=== PATIENT | female | born 1970 | race Caucasian/White ===

== ENCOUNTER 2020-05-06 14:48 | Inpatient (IN) | payer MEDICAID ==
[2020-05-06] MEDS: cefTRIAXone 2 GM in Sodium Chloride 0.9% 100 ML IV SCH (17:19)
--- NOTE | 2020-05-06 22:02 | HP ---
REASON FOR EMERGENCY ROOM VISIT: Infection left leg. HISTORY: This 49-year-old woman with morbid obesity, comes in with a 4-day history of what sounds like a progressive rash involving her left leg approximately her ankle up and to the mid medial thigh area. She believes that she started to get a red rash involving her leg approximately 4 days ago. Because of her obesity, she is not able to see it very well, but today she did notice that there was considerably worse, but over the last couple of days she has noticed considerably more swelling involving her left leg and more erythema. She has had a minimal amount of discomfort associated with this, but denies any fever or chills. She has not had any trauma to her legs or any open sores that she can think of. She does have a history of psoriasis and she states she has had cellulitis in the past. She is a nondiabetic. PAST MEDICAL HISTORY: 1. Psoriasis. 2. Obesity. 3. Hypertension. MEDICATIONS: None. ALLERGIES: NONE. REVIEW OF SYSTEMS: Pertinent positives and negatives as listed in the HPI. PHYSICAL EXAMINATION: GENERAL: She is a pleasant, obese woman in no acute distress. VITAL SIGNS: She is afebrile. Heart rate is 102, blood pressure 161/123, respiratory rate is 24, O2 sats on room air is 96%. HEENT: No conjunctivitis or scleral icterus. Oropharynx is normal. NECK: Supple. No adenopathy. CHEST: Clear to auscultation with good air exchange bilaterally. No wheezes, rhonchi, or rales. CARDIAC: Regular rate without murmur. ABDOMEN: Extremely obese, soft, and nontender to deep palpation. No hepatosplenomegaly or palpable masses noted. EXTREMITIES: She has some mild edema about her right leg. This may represent mild lymphedema. Her left leg demonstrates the raised vesicular reddish rash with skin edema and sharply demarcated borders beginning at the level of the medial malleolus and extending all the way up the leg circumferentially to about the knee and then up the medial aspect of the thigh approximately half way up. The borders, the rash is warm with raised skin edges and sharply demarcated, all characteristic of erysipelas. There are some vesicles overlying this, particularly in the upper thigh area and a couple of small bullae. These have clear yellowish serum contained within them, but not purulent. There is no obvious area of trauma or skin laceration. She also has raised crusting areas consistent with psoriasis in about both elbows and in the upper arms bilaterally. NEUROLOGIC: Cranial nerves 2 through 12 are intact. Muscle, strength, bulk, and tone are normal bilaterally in the upper and lower extremities. She moves all extremities equally well. Sensation is normal to crude touch. LABORATORY DATA: CBC shows a marked leukocytosis with a white count of 21,600. Her hemoglobin is 13.4. Differential is pending at this time. A CMP reveals her electrolytes to be normal, but her creatinine is 1.32. Her BUN is 24. Her glucose is 120. Her bilirubin, AST and ALT are normal, but she has a mild elevation of alkaline phosphatase at 157. Her albumin is 2.9. COVID-19 screen is pending at this time. IMPRESSION: 1. Erysipelas, severe, without evidence of septicemia at this time. 2. Elevated blood pressure. She does have a history of hypertension for which she was on medication and elected to stop it on her own because she could not tolerate it for some reason. 3. Psoriasis. 4. Possible underlying lymphedema. 5. Morbid obesity. PLAN: I am not confident that she can care for herself adequately at home even though theoretically she could be managed with daily outpatient Rocephin IM injections. With this degree of obvious severe erysipelas and her inability to notice it because of her obesity mandates that she be placed in the hospital until we get this thing under control with parenteral antibiotics and simple localized local cares. We will start her on Rocephin 2 g IV every 24 hours. We will wash the area of erysipelas, particularly the areas where it is weeping with surgical soap such as Hibiclens t.i.d. I am going to avoid the temptation to place any wraps around her leg and so forth because I do not think it will do any real good for the underlying problem. In addition, we will monitor her blood pressure and decide whether or not antihypertensive therapy needs to be initiated while she is inpatient. She understands and agrees with this plan. All questions were answered. ANTHONY/ROSA
[2020-05-06] MEDS: Ibuprofen 200 MG Tab PO PRN (23:08)
[2020-05-07] MEDS: Ibuprofen 200 MG Tab PO PRN ×2 (05:40→18:04)
[2020-05-07] MEDS: Lactobacillus Acidophilus/Lactobacillus Sporogenes (Probiotic) Tab PO SCH (08:54)
[2020-05-07] MEDS: Nystatin Topical Powder 15 GM Bottle TOP PRN (10:00)
[2020-05-07] MEDS: Lisinopril 10 MG Tab PO SCH (12:09)
[2020-05-07] MEDS: Hydrochlorothiazide 12.5 MG Cap PO SCH (12:09)
[2020-05-07] MEDS: cefTRIAXone 2 GM in Sodium Chloride 0.9% 100 ML IV SCH (16:05)
[2020-05-07] MEDS ORDERED: Ibuprofen 600 MG Tab ONE (17:59)
[2020-05-08] MEDS: Ibuprofen 200 MG Tab PO PRN ×2 (04:46→13:05)
--- NOTE | 2020-05-08 07:08 | PN ---
DATE OF VISIT: 05/07/2020 HISTORY OF PRESENT ILLNESS: Gen had an uneventful night. She will receive her 2nd dose of Rocephin 2 g IV daily. She remains afebrile and offers no new complaints. The nursing staff reports that she is not very cooperative with blood pressure checking and wound cares to her leg, etc. OBJECTIVE: She has been afebrile with temperatures ranging between 36.9 and 37.4 degrees centigrade. Her blood pressure has been ranging between 144 and 173 systolic over 80-88 diastolic. On exam, her cellulitis does not appear to be changed versus yesterday and this is not surprising. Some of the bullae have popped and there has been some serous drainage from the areas where the bullae were located, but there does not seem to be any progression of the erysipelas. IMPRESSION: 1. Erysipelas. 2. Hypertension. PLAN: I think she would do well on an JULIANA inhibitor combined with a diuretic like hydrochlorothiazide given her generalized tendency toward edema. We will start her on lisinopril 10 mg with hydrochlorothiazide 12.5 mg p.o. daily. I explained this to Gen and she agrees with this plan. She also knows that I will be gone tomorrow and Dr. Kaminski will be assuming her care. ANTHONY/ROSA /[id number]
[2020-05-08] MEDS: Hydrochlorothiazide 12.5 MG Cap PO SCH (08:09)
[2020-05-08] MEDS: Lactobacillus Acidophilus/Lactobacillus Sporogenes (Probiotic) Tab PO SCH (08:10)
[2020-05-08] MEDS: Lisinopril 10 MG Tab PO SCH (08:10)
[2020-05-08] MEDS ORDERED: Piperacillin/Tazobactam 4.5 GM in Sodium Chloride 0.9% 100 ML IV SCH (08:45)
[2020-05-08] MEDS: Nystatin Topical Powder 15 GM Bottle TOP PRN (09:42)
[2020-05-08] MEDS: Piperacillin/Tazobactam 4.5 GM in Sodium Chloride 0.9% 100 ML IV SCH ×2 (14:31→20:43)
--- NOTE | 2020-05-08 18:57 | PCM.PN ---
- General Info Date of Service: 05/08/20 Subjective Update: Patient denies any fever or chills. She has a good appetite. Patient notes the left leg does feel swollen. She denies any leg pain. Functional Status: Reports: Pain Controlled, Tolerating Diet, Ambulating - Review of Systems General: Reports: No Symptoms HEENT: Reports: No Symptoms Pulmonary: Reports: No Symptoms Cardiovascular: Reports: No Symptoms Gastrointestinal: Reports: No Symptoms Genitourinary: Reports: No Symptoms Musculoskeletal: Reports: No Symptoms Skin: Reports: Other (erythema and blistering of the lower leg and circumferential lower leg) Psychiatric: Reports: No Symptoms - Patient Data Vitals - Most Recent: Last Vital Signs Temp 36.8 C 05/08/20 16:00 Pulse 86 05/08/20 16:00 Resp 20 05/08/20 16:00 BP 158/79 H 05/08/20 16:00 Pulse Ox 98 05/08/20 16:00 Weight - Most Recent: 181.437 kg Lab Results Last 24 Hours: Laboratory Results - last 24 hr 05/08/20 05/08/20 05/08/20 Range/Units 07:40 07:40 07:40 WBC 18.5 H (4.0-11.0) K/uL RBC 4.12 (3.80-5.80) M/uL Hgb 11.3 L (11.5-16.5) g/dL Hct 37.1 (37.0-47.0) % MCV 90 (76-96) fL MCH 27.4 (27.0-32.0) pg MCHC 30.5 L (31.0-35.0) g/dL RDW 15.4 (11.0-16.0) % Plt Count 348 (150-500) K/uL MPV 9.9 (6.0-10.0) fL Neut % (Auto) 89.2 H (45.0-70.0) % Lymph % (Auto) 5.6 L (20.0-40.0) % [place] % (Auto) 4.2 (3.0-10.0) % Eos % (Auto) 0.9 L (1.0-5.0) % Baso % (Auto) 0.1 (0.0-0.5) % Neut # (Auto) 16.50 H (2.00-7.50) K/uL Lymph # (Auto) 1.03 L (1.50-4.00) K/uL [place] # (Auto) 0.77 (0.20-0.80) K/uL Eos # (Auto) 0.16 (0.04-0.40) K/uL Baso # (Auto) 0.02 (0.02-0.10) K/uL Sodium Cancelled 144 Potassium Cancelled 3.7 Chloride Cancelled 106 Carbon Dioxide Cancelled 27.3 Anion Gap Cancelled 14.4 BUN Cancelled 20 Creatinine Cancelled 1.09 H Est Cr Clr Drug Dosing Cancelled 57.80 Estimated GFR (MDRD) Cancelled 53 L BUN/Creatinine Ratio Cancelled 18.3 Glucose Cancelled 106 H Calcium Cancelled 8.5 Total Bilirubin 0.4 D (0.0-1.0) mg/dL AST 16 (15-37) U/L ALT 21 (12-78) U/L Alkaline Phosphatase 131 H (46-116) U/L Total Protein 7.1 (6.4-8.2) g/dL Albumin 1.9 L (3.4-5.0) g/dL Globulin 5.2 H (2.2-4.2) g/dL Albumin/Globulin Ratio 0.4 L (0.8-2.0) Pramod Results Last 24 Hours: Microbiology 05/06/20 Unknown MRSA Surveillance Culture - Final Nares, Left NO MRSA ISOLATED Med Orders - Current: Current Medications Acetaminophen (Tylenol Extra Strength) 1,000 mg PO Q4H PRN PRN Reason: Pain Hydrochlorothiazide (Hydrochlorothiazide) 12.5 mg PO DAILY [facility] Last Admin: 05/08/20 08:09 Dose: 12.5 mg Documented by: Ceftriaxone Sodium 2 gm/ (Sodium Chloride) 100 mls @ 100 mls/hr IV Q24H [facility] Last Admin: 05/07/20 16:05 Dose: 100 mls/hr Documented by: Piperacillin Sod/Tazobactam (Sod 4.5 gm/ Sodium Chloride) 100 mls @ 200 mls/hr IV Q6H [facility] Last Admin: 05/08/20 14:31 Dose: 200 mls/hr Documented by: Ibuprofen (Motrin) 600 mg PO Q4H PRN PRN Reason: PAIN Lactobacillus Acidophilus (Acidolphilus Extra Strength) 1 tab PO DAILY [facility] Last Admin: 05/08/20 08:10 Dose: 1 tab Documented by: Lisinopril (Prinivil) 10 mg PO DAILY [facility] Last Admin: 05/08/20 08:10 Dose: 10 mg Documented by: Melatonin (Melatonin) 6 mg PO BEDTIME PRN PRN Reason: sleep Nystatin (Nystop) 0 gm TOP QID PRN PRN Reason: Rash Last Admin: 05/08/20 09:42 Dose: 1 applic Documented by: Discontinued Medications Vancomycin HCl 2 gm/ Sodium (Chloride) 250 mls @ 167 mls/hr IV Q12H [facility] Piperacillin Sod/Tazobactam (Sod 4.5 gm/ Sodium Chloride) 100 mls @ 200 mls/hr IV Q6H [facility] Last Admin: 05/08/20 09:17 Dose: 200 mls/hr Documented by: Ibuprofen (Motrin) 600 mg PO Q4H PRN PRN Reason: Pain Last Admin: 05/08/20 13:05 Dose: 600 mg Documented by: Ibuprofen (Motrin) Confirm Administered Dose 600 mg .ROUTE .STK-MED ONE Stop: 05/07/20 18:00 Last Admin: 05/07/20 18:02 Dose: Not Given Documented by: - Exam General: Alert, Oriented, Cooperative HEENT: Pupils Equal, Pupils Reactive, EOMI Lungs: Clear to Auscultation, Normal Respiratory Effort Cardiovascular: Regular Rate, Regular Rhythm GI/Abdominal Exam: Normal Bowel Sounds Extremities: Redness, Other (left lower leg swelling, redness and blisters that have broken with serous fluid drainage) Sepsis Event Note - Evaluation Sepsis Screening Result: Sepsis Risk - Focused Exam Vital Signs: Vital Signs Temp Temp Pulse Resp BP BP Pulse Ox 05/08/20 16:00 36.8 C 86 20 158/79 H 98 05/08/20 12:00 36.6 C 86 20 173/85 H 98 05/08/20 08:10 175/106 H 05/08/20 08:00 36.3 C 82 20 160/102 H 100 - Problem List & Annotations (1) Cellulitis SNOMED Code(s): 299100886 Code(s): L03.90 - CELLULITIS, UNSPECIFIED Status: Acute Priority: High Current Visit: Yes Qualifiers: Site of cellulitis: extremity Laterality: left (2) Erysipelas of left lower extremity SNOMED Code(s): 41763978483988519 Code(s): A46 - ERYSIPELAS Status: Acute Priority: High Current Visit: Yes - Problem List Review Problem List Initiated/Reviewed/Updated: Yes - My Orders Last 24 Hours: My Active Orders 05/08/20 14:45 Piperacillin/Tazobactam [Piperacil-Tazobact] 4.5 gm Sodium Chloride 0.9% [Normal Saline] 100 ml IV Q6H 05/09/20 07:00 CBC WITH AUTO DIFF [HEME] Routine - Plan Plan:: Patient WBC remains elevated. Borders of infection well defined and stable but not improving. We will need to change antibiotics and repeat labs in am and reassess. If no improvement we will consider transfer to facility for Infectious disease evaluation.
[2020-05-08] MEDS: Ibuprofen 600 MG Tab PO PRN (19:20)
[2020-05-09] MEDS: Piperacillin/Tazobactam 4.5 GM in Sodium Chloride 0.9% 100 ML IV SCH ×4 (03:33→19:58)
[2020-05-09] MEDS: Ibuprofen 600 MG Tab PO PRN ×3 (03:55→17:13)
[2020-05-09] MEDS: Sodium Chloride 0.9% 10 ML Syringe FLUSH PRN ×3 (04:07→21:28)
[2020-05-09] MEDS: Hydrochlorothiazide 12.5 MG Cap PO SCH (07:44)
[2020-05-09] MEDS: Lactobacillus Acidophilus/Lactobacillus Sporogenes (Probiotic) Tab PO SCH (07:44)
[2020-05-09] MEDS: Lisinopril 10 MG Tab PO SCH (07:44)
[2020-05-09] MEDS: Acetaminophen 500 MG Tab PO PRN (19:45)
[2020-05-09] MEDS: Melatonin 3 MG Tab PO PRN (21:29)
[2020-05-10] MEDS: Sodium Chloride 0.9% 10 ML Syringe FLUSH PRN ×3 (02:45→20:41)
[2020-05-10] MEDS: Piperacillin/Tazobactam 4.5 GM in Sodium Chloride 0.9% 100 ML IV SCH ×4 (02:48→20:44)
[2020-05-10] MEDS: Ibuprofen 600 MG Tab PO PRN ×3 (03:37→20:45)
[2020-05-10] MEDS: Lactobacillus Acidophilus/Lactobacillus Sporogenes (Probiotic) Tab PO SCH (08:03)
[2020-05-10] MEDS: Lisinopril 10 MG Tab PO SCH (08:03)
[2020-05-10] MEDS: Hydrochlorothiazide 12.5 MG Cap PO SCH (08:04)
--- NOTE | 2020-05-10 08:52 | PCM.PN ---
- General Info Date of Service: 05/09/20 Subjective Update: Patient denies any concerns. She continues to have left lower leg swelling and erythema. She notes the swelling has improved slightly. Denies any fever or shortness of breath. - Review of Systems General: Reports: No Symptoms HEENT: Reports: No Symptoms Pulmonary: Reports: No Symptoms Cardiovascular: Reports: No Symptoms Gastrointestinal: Reports: No Symptoms Genitourinary: Reports: No Symptoms Musculoskeletal: Reports: No Symptoms Skin: Reports: Other (erythema, blistering and serous discharge from the sites on th eleft lower leg and thigh) Psychiatric: Reports: No Symptoms - Patient Data Vitals - Most Recent: Last Vital Signs Temp 36.5 C 05/10/20 08:00 Pulse 91 05/10/20 08:00 Resp 20 05/10/20 08:00 BP 165/94 H 05/10/20 08:03 Pulse Ox 96 05/10/20 08:00 Weight - Most Recent: 181.437 kg I&O - Last 24 Hours: Intake & Output 05/09/20 05/10/20 05/10/20 22:59 06:59 14:59 Intake Total 2300 200 Balance 2300 200 Lab Results Last 24 Hours: Laboratory Results - last 24 hr 05/09/20 05/10/20 Range/Units 15:30 07:50 WBC 13.7 H (4.0-11.0) K/uL RBC 4.21 (3.80-5.80) M/uL Hgb 11.6 (11.5-16.5) g/dL Hct 37.9 (37.0-47.0) % MCV 90 (76-96) fL MCH 27.6 (27.0-32.0) pg MCHC 30.6 L (31.0-35.0) g/dL RDW 15.4 (11.0-16.0) % Plt Count 373 (150-500) K/uL MPV 9.8 (6.0-10.0) fL Neut % (Auto) 83.0 H (45.0-70.0) % Lymph % (Auto) 8.9 L (20.0-40.0) % [place] % (Auto) 5.8 (3.0-10.0) % Eos % (Auto) 2.2 (1.0-5.0) % Baso % (Auto) 0.1 (0.0-0.5) % Neut # (Auto) 11.32 H (2.00-7.50) K/uL Lymph # (Auto) 1.22 L (1.50-4.00) K/uL [place] # (Auto) 0.79 (0.20-0.80) K/uL Eos # (Auto) 0.30 (0.04-0.40) K/uL Baso # (Auto) 0.02 (0.02-0.10) K/uL Sodium 144 (136-145) mmol/L Potassium 3.7 (3.5-5.1) mmol/L Chloride 103 (98-107) mmol/L Carbon Dioxide 31.1 (21.0-32.0) mmol/L Anion Gap 13.6 (5.0-15.0) mmol/L BUN 20 (8-26) mg/dL Creatinine 1.28 H (0.55-1.02) mg/dL Est Cr Clr Drug Dosing 49.22 mL/min Estimated GFR (MDRD) 44 L (>60) MLS/MIN BUN/Creatinine Ratio 15.6 (6-25) Glucose 133 H (74-100) mg/dL Calcium 8.2 L (8.5-10.1) mg/dL Total Bilirubin 0.4 (0.0-1.0) mg/dL AST 31 (15-37) U/L ALT 34 (12-78) U/L Alkaline Phosphatase 141 H (46-116) U/L Total Protein 7.3 (6.4-8.2) g/dL Albumin 1.8 L (3.4-5.0) g/dL Globulin 5.5 H (2.2-4.2) g/dL Albumin/Globulin Ratio 0.3 L (0.8-2.0) Med Orders - Current: Current Medications Acetaminophen (Tylenol Extra Strength) 1,000 mg PO Q4H PRN PRN Reason: Pain Last Admin: 05/09/20 19:45 Dose: 1,000 mg Documented by: Hydrochlorothiazide (Hydrochlorothiazide) 12.5 mg PO DAILY [facility] Last Admin: 05/10/20 08:04 Dose: 12.5 mg Documented by: Ceftriaxone Sodium 2 gm/ (Sodium Chloride) 100 mls @ 100 mls/hr IV Q24H [facility] Last Admin: 05/07/20 16:05 Dose: 100 mls/hr Documented by: Piperacillin Sod/Tazobactam (Sod 4.5 gm/ Sodium Chloride) 100 mls @ 200 mls/hr IV Q6H [facility] Last Admin: 05/10/20 02:48 Dose: 200 mls/hr Documented by: Ibuprofen (Motrin) 600 mg PO Q4H PRN PRN Reason: PAIN Last Admin: 05/10/20 03:37 Dose: 600 mg Documented by: Lactobacillus Acidophilus (Acidolphilus Extra Strength) 1 tab PO DAILY [facility] Last Admin: 05/10/20 08:03 Dose: 1 tab Documented by: Lisinopril (Prinivil) 10 mg PO DAILY [facility] Last Admin: 05/10/20 08:03 Dose: 10 mg Documented by: Melatonin (Melatonin) 6 mg PO BEDTIME PRN PRN Reason: sleep Last Admin: 05/09/20 21:29 Dose: 6 mg Documented by: Nystatin (Nystop) 0 gm TOP QID PRN PRN Reason: Rash Last Admin: 05/08/20 09:42 Dose: 1 applic Documented by: Sodium Chloride (Saline Flush) 10 ml FLUSH ASDIRECTED PRN PRN Reason: Keep Vein Open Last Admin: 05/10/20 03:38 Dose: 10 ml Documented by: Discontinued Medications Vancomycin HCl 2 gm/ Sodium (Chloride) 250 mls @ 167 mls/hr IV Q12H [facility] Piperacillin Sod/Tazobactam (Sod 4.5 gm/ Sodium Chloride) 100 mls @ 200 mls/hr IV Q6H [facility] Last Admin: 05/08/20 09:17 Dose: 200 mls/hr Documented by: Ibuprofen (Motrin) 600 mg PO Q4H PRN PRN Reason: Pain Last Admin: 05/08/20 13:05 Dose: 600 mg Documented by: Ibuprofen (Motrin) Confirm Administered Dose 600 mg .ROUTE .STK-MED ONE Stop: 05/07/20 18:00 Last Admin: 05/07/20 18:02 Dose: Not Given Documented by: - Exam General: Alert, Oriented, Cooperative HEENT: Pupils Equal Lungs: Clear to Auscultation, Normal Respiratory Effort Cardiovascular: Regular Rate, Regular Rhythm Extremities: Pedal Edema, Redness Peripheral Pulses: 2+: Dorsalis Pedis (L), Dorsalis Pedis (R) Skin: Moist, Rash, Other (erythema and skin breakdown of left lower leg) Neurological: No New Focal Deficit Psy/Mental Status: Alert, Normal Affect, Normal Mood Sepsis Event Note - Evaluation Sepsis Screening Result: No Definite Risk - Focused Exam Vital Signs: Vital Signs Temp Temp Pulse Pulse Resp BP BP 05/10/20 08:03 165/94 H 05/10/20 08:00 36.5 C 91 20 165/94 H 05/10/20 02:57 36.7 C 77 20 170/87 H Pulse Ox 05/10/20 08:03 05/10/20 08:00 96 05/10/20 02:57 95 - Problem List & Annotations (1) Cellulitis SNOMED Code(s): 885051161 Code(s): L03.90 - CELLULITIS, UNSPECIFIED Status: Acute Priority: High Current Visit: Yes Qualifiers: Site of cellulitis: extremity Laterality: left (2) Erysipelas of left lower extremity SNOMED Code(s): 28464802151463416 Code(s): A46 - ERYSIPELAS Status: Acute Priority: High Current Visit: Yes - Problem List Review Problem List Initiated/Reviewed/Updated: Yes - Plan Plan:: Patient WBC remains elevated. Borders of infection well defined and stable but not improving. We will need to change antibiotics and repeat labs in am and reassess. If no improvement we will consider transfer to facility for Infectious disease evaluation. 05/09/20 Patient requires continue IV antibiotics and we will need to change due to minimal change and little to no improvement.
--- NOTE | 2020-05-10 17:24 | PCM.PN ---
- General Info Date of Service: 05/10/20 Subjective Update: Patient notes minimal improvement of the left lower leg. There remains a large area of erythema and oozing from the site. There is a slight decrease in redness and swelling. Functional Status: Reports: Pain Controlled, Tolerating Diet - Review of Systems General: Reports: No Symptoms HEENT: Reports: No Symptoms Pulmonary: Reports: No Symptoms Cardiovascular: Reports: No Symptoms Gastrointestinal: Reports: No Symptoms Genitourinary: Reports: No Symptoms Musculoskeletal: Reports: No Symptoms Skin: Reports: Rash, Other (erythema and serous oozing from site of infection - slight improvement since the change in antibiotics. ) - Patient Data Vitals - Most Recent: Last Vital Signs Temp 37.0 C 05/10/20 16:49 Pulse 81 05/10/20 16:49 Resp 18 05/10/20 16:49 BP 138/60 05/10/20 16:49 Pulse Ox 95 05/10/20 16:49 Weight - Most Recent: 181.437 kg I&O - Last 24 Hours: Intake & Output 05/10/20 05/10/20 05/10/20 06:59 14:59 22:59 Intake Total 200 Balance 200 Lab Results Last 24 Hours: Laboratory Results - last 24 hr 05/10/20 Range/Units 07:50 WBC 13.7 H (4.0-11.0) K/uL RBC 4.21 (3.80-5.80) M/uL Hgb 11.6 (11.5-16.5) g/dL Hct 37.9 (37.0-47.0) % MCV 90 (76-96) fL MCH 27.6 (27.0-32.0) pg MCHC 30.6 L (31.0-35.0) g/dL RDW 15.4 (11.0-16.0) % Plt Count 373 (150-500) K/uL MPV 9.8 (6.0-10.0) fL Neut % (Auto) 83.0 H (45.0-70.0) % Lymph % (Auto) 8.9 L (20.0-40.0) % [place] % (Auto) 5.8 (3.0-10.0) % Eos % (Auto) 2.2 (1.0-5.0) % Baso % (Auto) 0.1 (0.0-0.5) % Neut # (Auto) 11.32 H (2.00-7.50) K/uL Lymph # (Auto) 1.22 L (1.50-4.00) K/uL [place] # (Auto) 0.79 (0.20-0.80) K/uL Eos # (Auto) 0.30 (0.04-0.40) K/uL Baso # (Auto) 0.02 (0.02-0.10) K/uL Med Orders - Current: Current Medications Acetaminophen (Tylenol Extra Strength) 1,000 mg PO Q4H PRN PRN Reason: Pain Last Admin: 05/09/20 19:45 Dose: 1,000 mg Documented by: Hydrochlorothiazide (Hydrochlorothiazide) 12.5 mg PO DAILY [facility] Last Admin: 05/10/20 08:04 Dose: 12.5 mg Documented by: Ceftriaxone Sodium 2 gm/ (Sodium Chloride) 100 mls @ 100 mls/hr IV Q24H [facility] Last Admin: 05/07/20 16:05 Dose: 100 mls/hr Documented by: Piperacillin Sod/Tazobactam (Sod 4.5 gm/ Sodium Chloride) 100 mls @ 200 mls/hr IV Q6H [facility] Last Admin: 05/10/20 14:46 Dose: 200 mls/hr Documented by: Ibuprofen (Motrin) 600 mg PO Q4H PRN PRN Reason: PAIN Last Admin: 05/10/20 13:00 Dose: 600 mg Documented by: Lactobacillus Acidophilus (Acidolphilus Extra Strength) 1 tab PO DAILY [facility] Last Admin: 05/10/20 08:03 Dose: 1 tab Documented by: Lisinopril (Prinivil) 10 mg PO DAILY [facility] Last Admin: 05/10/20 08:03 Dose: 10 mg Documented by: Melatonin (Melatonin) 6 mg PO BEDTIME PRN PRN Reason: sleep Last Admin: 05/09/20 21:29 Dose: 6 mg Documented by: Nystatin (Nystop) 0 gm TOP QID PRN PRN Reason: Rash Last Admin: 05/08/20 09:42 Dose: 1 applic Documented by: Sodium Chloride (Saline Flush) 10 ml FLUSH ASDIRECTED PRN PRN Reason: Keep Vein Open Last Admin: 05/10/20 03:38 Dose: 10 ml Documented by: Discontinued Medications Vancomycin HCl 2 gm/ Sodium (Chloride) 250 mls @ 167 mls/hr IV Q12H [facility] Piperacillin Sod/Tazobactam (Sod 4.5 gm/ Sodium Chloride) 100 mls @ 200 mls/hr IV Q6H [facility] Last Admin: 05/08/20 09:17 Dose: 200 mls/hr Documented by: Ibuprofen (Motrin) 600 mg PO Q4H PRN PRN Reason: Pain Last Admin: 05/08/20 13:05 Dose: 600 mg Documented by: Ibuprofen (Motrin) Confirm Administered Dose 600 mg .ROUTE .STK-MED ONE Stop: 05/07/20 18:00 Last Admin: 05/07/20 18:02 Dose: Not Given Documented by: - Exam General: Alert, Oriented, Cooperative HEENT: Pupils Equal, Pupils Reactive, EOMI Neck: Supple Lungs: Clear to Auscultation, Normal Respiratory Effort Cardiovascular: Regular Rate, Regular Rhythm GI/Abdominal Exam: Normal Bowel Sounds Back Exam: Normal Inspection Extremities: Increased Warmth, Redness Skin: Rash, Other (oozing for areas of infection, improved redness and swelling) Psy/Mental Status: Alert, Normal Affect, Normal Mood Sepsis Event Note - Evaluation Sepsis Screening Result: No Definite Risk - Focused Exam Vital Signs: Vital Signs Temp Pulse Resp BP BP Pulse Ox 05/10/20 16:49 37.0 C 81 18 138/60 95 05/10/20 12:00 36.8 C 83 20 171/87 H 100 05/10/20 08:03 165/94 H 05/10/20 08:00 36.5 C 91 20 165/94 H 96 - Problem List & Annotations (1) Cellulitis SNOMED Code(s): 231570738 Code(s): L03.90 - CELLULITIS, UNSPECIFIED Status: Acute Priority: High Current Visit: Yes Qualifiers: Site of cellulitis: extremity Laterality: left (2) Erysipelas of left lower extremity SNOMED Code(s): 13763771957804332 Code(s): A46 - ERYSIPELAS Status: Acute Priority: High Current Visit: Yes - Problem List Review Problem List Initiated/Reviewed/Updated: Yes - Plan Plan:: Patient WBC remains elevated. Borders of infection well defined and stable but not improving. We will need to change antibiotics and repeat labs in am and reassess. If no improvement we will consider transfer to facility for Infectious disease evaluation. 05/10/20 The new antibiotics have helped and WBC has improved and symptoms have slowly improved. She continues to require IV antibiotics as the infection is only 10-20% improved. It is going in the correct direction since the change in antibiotics. Patient agrees with plan of care and we will f/u labs and re-examin e in the am.
[2020-05-10] MEDS: Melatonin 3 MG Tab PO PRN (20:46)
[2020-05-11] MEDS: Piperacillin/Tazobactam 4.5 GM in Sodium Chloride 0.9% 100 ML IV SCH ×4 (03:05→21:00)
[2020-05-11] MEDS: Sodium Chloride 0.9% 10 ML Syringe FLUSH PRN ×2 (03:05→03:41)
[2020-05-11] MEDS: Ibuprofen 600 MG Tab PO PRN ×3 (03:42→21:09)
[2020-05-11] MEDS: Lactobacillus Acidophilus/Lactobacillus Sporogenes (Probiotic) Tab PO SCH (07:50)
[2020-05-11] MEDS: Lisinopril 20 MG Tab PO SCH (07:50)
[2020-05-11] MEDS: Hydrochlorothiazide 25 MG Tab PO SCH (07:50)
--- NOTE | 2020-05-11 15:28 | PCM.PN ---
- General Info Date of Service: 05/11/20 Subjective Update: Patient continues to have large patches of erythema and healing blisters of the left lower leg. She notes some improvement. Denies any fever or chills. - Review of Systems General: Reports: No Symptoms HEENT: Reports: No Symptoms Pulmonary: Reports: No Symptoms Cardiovascular: Reports: No Symptoms Gastrointestinal: Reports: No Symptoms Genitourinary: Reports: No Symptoms Musculoskeletal: Reports: No Symptoms Skin: Reports: Rash, Other (open blisters and serous fluid drainage.) Psychiatric: Reports: No Symptoms - Patient Data Vitals - Most Recent: Last Vital Signs Temp 36.9 C 05/11/20 12:00 Pulse 81 05/11/20 12:00 Resp 20 05/11/20 12:00 BP 100/85 05/11/20 12:00 Pulse Ox 95 05/11/20 12:00 Weight - Most Recent: 181.437 kg I&O - Last 24 Hours: Intake & Output 05/11/20 05/11/20 05/11/20 06:59 14:59 22:59 Intake Total 200 Balance 200 Lab Results Last 24 Hours: Laboratory Results - last 24 hr 05/11/20 Range/Units 07:45 WBC 12.9 H (4.0-11.0) K/uL RBC 3.94 (3.80-5.80) M/uL Hgb 10.9 L (11.5-16.5) g/dL Hct 35.8 L (37.0-47.0) % MCV 91 (76-96) fL MCH 27.7 (27.0-32.0) pg MCHC 30.4 L (31.0-35.0) g/dL RDW 15.2 (11.0-16.0) % Plt Count 474 D (150-500) K/uL MPV 9.5 (6.0-10.0) fL Neut % (Auto) 83.2 H (45.0-70.0) % Lymph % (Auto) 9.4 L (20.0-40.0) % [place] % (Auto) 5.3 (3.0-10.0) % Eos % (Auto) 1.9 (1.0-5.0) % Baso % (Auto) 0.2 (0.0-0.5) % Neut # (Auto) 10.76 H (2.00-7.50) K/uL Lymph # (Auto) 1.22 L (1.50-4.00) K/uL [place] # (Auto) 0.68 (0.20-0.80) K/uL Eos # (Auto) 0.24 (0.04-0.40) K/uL Baso # (Auto) 0.02 (0.02-0.10) K/uL Med Orders - Current: Current Medications Acetaminophen (Tylenol Extra Strength) 1,000 mg PO Q4H PRN PRN Reason: Pain Last Admin: 05/09/20 19:45 Dose: 1,000 mg Documented by: Hydrochlorothiazide (Hydrochlorothiazide) 25 mg PO DAILY [facility] Last Admin: 05/11/20 07:50 Dose: 25 mg Documented by: Ceftriaxone Sodium 2 gm/ (Sodium Chloride) 100 mls @ 100 mls/hr IV Q24H [facility] Last Admin: 05/07/20 16:05 Dose: 100 mls/hr Documented by: Piperacillin Sod/Tazobactam (Sod 4.5 gm/ Sodium Chloride) 100 mls @ 200 mls/hr IV Q6H [facility] Last Admin: 05/11/20 15:13 Dose: 200 mls/hr Documented by: Ibuprofen (Motrin) 600 mg PO Q4H PRN PRN Reason: PAIN Last Admin: 05/11/20 03:42 Dose: 600 mg Documented by: Lactobacillus Acidophilus (Acidolphilus Extra Strength) 1 tab PO DAILY [facility] Last Admin: 05/11/20 07:50 Dose: 1 tab Documented by: Lisinopril (Prinivil) 20 mg PO DAILY [facility] Last Admin: 05/11/20 07:50 Dose: 20 mg Documented by: Melatonin (Melatonin) 6 mg PO BEDTIME PRN PRN Reason: sleep Last Admin: 05/10/20 20:46 Dose: 6 mg Documented by: Nystatin (Nystop) 0 gm TOP QID PRN PRN Reason: Rash Last Admin: 05/08/20 09:42 Dose: 1 applic Documented by: Sodium Chloride (Saline Flush) 10 ml FLUSH ASDIRECTED PRN PRN Reason: Keep Vein Open Last Admin: 05/11/20 03:41 Dose: 10 ml Documented by: Discontinued Medications Hydrochlorothiazide (Hydrochlorothiazide) 12.5 mg PO DAILY [facility] Last Admin: 05/10/20 08:04 Dose: 12.5 mg Documented by: Vancomycin HCl 2 gm/ Sodium (Chloride) 250 mls @ 167 mls/hr IV Q12H [facility] Piperacillin Sod/Tazobactam (Sod 4.5 gm/ Sodium Chloride) 100 mls @ 200 mls/hr IV Q6H [facility] Last Admin: 05/08/20 09:17 Dose: 200 mls/hr Documented by: Ibuprofen (Motrin) 600 mg PO Q4H PRN PRN Reason: Pain Last Admin: 05/08/20 13:05 Dose: 600 mg Documented by: Ibuprofen (Motrin) Confirm Administered Dose 600 mg .ROUTE .STK-MED ONE Stop: 05/07/20 18:00 Last Admin: 05/07/20 18:02 Dose: Not Given Documented by: Lisinopril (Prinivil) 10 mg PO DAILY [facility] Last Admin: 05/10/20 08:03 Dose: 10 mg Documented by: - Exam General: Alert, Oriented, Cooperative HEENT: Pupils Equal, EOMI Neck: Supple Lungs: Clear to Auscultation, Normal Respiratory Effort Cardiovascular: Regular Rate, Regular Rhythm GI/Abdominal Exam: Normal Bowel Sounds Extremities: Increased Warmth, Redness, Other (left leg swellling and open blistering over 60% of leg and erythema over 80% of leg - this is still an improvement from yesterday) Sepsis Event Note - Evaluation Sepsis Screening Result: No Definite Risk - Focused Exam Vital Signs: Vital Signs Temp Temp Pulse Pulse Resp BP BP 05/11/20 12:00 36.9 C 81 20 100/85 05/11/20 07:56 36.6 C 82 20 165/87 H 05/11/20 07:50 165/87 H 05/11/20 04:56 156/88 H 05/11/20 04:00 36.4 C 87 18 171/97 H Pulse Ox 05/11/20 12:00 95 05/11/20 07:56 99 05/11/20 07:50 05/11/20 04:56 05/11/20 04:00 96 - Problem List & Annotations (1) Cellulitis SNOMED Code(s): 391154574 Code(s): L03.90 - CELLULITIS, UNSPECIFIED Status: Acute Priority: High Current Visit: Yes Qualifiers: Site of cellulitis: extremity Laterality: left (2) Erysipelas of left lower extremity SNOMED Code(s): 75840375585422448 Code(s): A46 - ERYSIPELAS Status: Acute Priority: High Current Visit: Yes - Problem List Review Problem List Initiated/Reviewed/Updated: Yes - My Orders Last 24 Hours: My Active Orders 05/11/20 07:04 Consult to Physical Therapy [PT Evaluation and Treatment] [CONS] Routine 05/11/20 08:00 hydroCHLOROthiazide 25 mg PO DAILY lisinopriL [Prinivil] 20 mg PO DAILY - Plan Plan:: Patient WBC remains elevated. Borders of infection well defined and stable but not improving. We will need to change antibiotics and repeat labs in am and reassess. If no improvement we will consider transfer to facility for Infectious disease evaluation. 05/10/20 The new antibiotics have helped and WBC has improved and symptoms have slowly improved. She continues to require IV antibiotics as the infection is only 10-20% improved. It is going in the correct direction since the change in antibiotics. Patient agrees with plan of care and we will f/u labs and re- examine in the am. 05/11/20 Patient has some improvement and WBC also improving. Overall the improvement is slow but steady and patient does continue to require IV antibiotics due to extensive infection of 90% of the left leg. F/u labs in AM and reassess in am also.
[2020-05-12] MEDS: Piperacillin/Tazobactam 4.5 GM in Sodium Chloride 0.9% 100 ML IV SCH ×4 (03:04→20:59)
[2020-05-12] MEDS: Ibuprofen 600 MG Tab PO PRN ×3 (03:25→21:04)
[2020-05-12] MEDS: Lisinopril 20 MG Tab PO SCH (07:32)
[2020-05-12] MEDS: Hydrochlorothiazide 25 MG Tab PO SCH (07:32)
[2020-05-12] MEDS: Lactobacillus Acidophilus/Lactobacillus Sporogenes (Probiotic) Tab PO SCH (07:32)
--- NOTE | 2020-05-12 08:04 | PCM.PN ---
- General Info Date of Service: 05/12/20 Functional Status: Reports: Pain Controlled, Tolerating Diet, Ambulating - Review of Systems General: Reports: No Symptoms HEENT: Reports: No Symptoms Pulmonary: Reports: No Symptoms Cardiovascular: Reports: No Symptoms Gastrointestinal: Reports: No Symptoms Genitourinary: Reports: No Symptoms Musculoskeletal: Reports: No Symptoms Skin: Reports: Rash, Other (erythema, blistering and serous drainage of 60-70% of left leg) Neurological: Reports: No Symptoms Psychiatric: Reports: No Symptoms - Patient Data Vitals - Most Recent: Last Vital Signs Temp 36.6 C 05/12/20 04:00 Pulse 82 05/12/20 04:00 Resp 16 05/12/20 04:00 BP 149/85 H 05/12/20 07:32 Pulse Ox 95 05/12/20 04:00 Weight - Most Recent: 181.437 kg I&O - Last 24 Hours: Intake & Output 05/11/20 05/12/20 05/12/20 22:59 06:59 14:59 Intake Total 200 200 Balance 200 200 Lab Results Last 24 Hours: Laboratory Results - last 24 hr 05/12/20 Range/Units 07:45 WBC 13.1 H (4.0-11.0) K/uL RBC 4.19 (3.80-5.80) M/uL Hgb 11.4 L (11.5-16.5) g/dL Hct 37.8 (37.0-47.0) % MCV 90 (76-96) fL MCH 27.2 (27.0-32.0) pg MCHC 30.2 L (31.0-35.0) g/dL RDW 15.3 (11.0-16.0) % Plt Count 476 (150-500) K/uL MPV 9.3 (6.0-10.0) fL Neut % (Auto) 83.8 H (45.0-70.0) % Lymph % (Auto) 9.2 L (20.0-40.0) % [place] % (Auto) 5.4 (3.0-10.0) % Eos % (Auto) 1.3 (1.0-5.0) % Baso % (Auto) 0.3 (0.0-0.5) % Neut # (Auto) 11.01 H (2.00-7.50) K/uL Lymph # (Auto) 1.21 L (1.50-4.00) K/uL [place] # (Auto) 0.71 (0.20-0.80) K/uL Eos # (Auto) 0.17 (0.04-0.40) K/uL Baso # (Auto) 0.04 (0.02-0.10) K/uL Med Orders - Current: Current Medications Acetaminophen (Tylenol Extra Strength) 1,000 mg PO Q4H PRN PRN Reason: Pain Last Admin: 05/09/20 19:45 Dose: 1,000 mg Documented by: Hydrochlorothiazide (Hydrochlorothiazide) 25 mg PO DAILY [facility] Last Admin: 05/12/20 07:32 Dose: 25 mg Documented by: Ceftriaxone Sodium 2 gm/ (Sodium Chloride) 100 mls @ 100 mls/hr IV Q24H [facility] Last Admin: 05/07/20 16:05 Dose: 100 mls/hr Documented by: Piperacillin Sod/Tazobactam (Sod 4.5 gm/ Sodium Chloride) 100 mls @ 200 mls/hr IV Q6H [facility] Last Admin: 05/12/20 03:04 Dose: 200 mls/hr Documented by: Ibuprofen (Motrin) 600 mg PO Q4H PRN PRN Reason: PAIN Last Admin: 05/12/20 03:25 Dose: 600 mg Documented by: Lactobacillus Acidophilus (Acidolphilus Extra Strength) 1 tab PO DAILY [facility] Last Admin: 05/12/20 07:32 Dose: 1 tab Documented by: Lisinopril (Prinivil) 20 mg PO DAILY [facility] Last Admin: 05/12/20 07:32 Dose: 20 mg Documented by: Melatonin (Melatonin) 6 mg PO BEDTIME PRN PRN Reason: sleep Last Admin: 05/10/20 20:46 Dose: 6 mg Documented by: Nystatin (Nystop) 0 gm TOP QID PRN PRN Reason: Rash Last Admin: 05/08/20 09:42 Dose: 1 applic Documented by: Sodium Chloride (Saline Flush) 10 ml FLUSH ASDIRECTED PRN PRN Reason: Keep Vein Open Last Admin: 05/11/20 03:41 Dose: 10 ml Documented by: Discontinued Medications Hydrochlorothiazide (Hydrochlorothiazide) 12.5 mg PO DAILY [facility] Last Admin: 05/10/20 08:04 Dose: 12.5 mg Documented by: Vancomycin HCl 2 gm/ Sodium (Chloride) 250 mls @ 167 mls/hr IV Q12H [facility] Piperacillin Sod/Tazobactam (Sod 4.5 gm/ Sodium Chloride) 100 mls @ 200 mls/hr IV Q6H [facility] Last Admin: 05/08/20 09:17 Dose: 200 mls/hr Documented by: Ibuprofen (Motrin) 600 mg PO Q4H PRN PRN Reason: Pain Last Admin: 05/08/20 13:05 Dose: 600 mg Documented by: Ibuprofen (Motrin) Confirm Administered Dose 600 mg .ROUTE .STK-MED ONE Stop: 05/07/20 18:00 Last Admin: 05/07/20 18:02 Dose: Not Given Documented by: Lisinopril (Prinivil) 10 mg PO DAILY [facility] Last Admin: 05/10/20 08:03 Dose: 10 mg Documented by: - Exam General: Alert, Oriented, Cooperative HEENT: Pupils Equal, Pupils Reactive, EOMI Neck: Supple Lungs: Clear to Auscultation, Normal Respiratory Effort Cardiovascular: Regular Rate, Regular Rhythm GI/Abdominal Exam: Normal Bowel Sounds Extremities: Redness, Other (left leg swelling, redness and erythema with open blisters and serous drainage of 60-70% of left leg) Sepsis Event Note - Evaluation Sepsis Screening Result: No Definite Risk - Focused Exam Vital Signs: Vital Signs Temp Temp Pulse Resp BP BP Pulse Ox 05/12/20 07:32 149/85 H 05/12/20 04:00 36.6 C 82 16 169/89 H 95 05/12/20 00:00 16 05/11/20 20:00 36.8 C 85 16 159/71 H 96 - Problem List & Annotations (1) Cellulitis SNOMED Code(s): 708628498 Code(s): L03.90 - CELLULITIS, UNSPECIFIED Status: Acute Priority: High Current Visit: Yes Qualifiers: Site of cellulitis: extremity Laterality: left (2) Erysipelas of left lower extremity SNOMED Code(s): 89190343648914749 Code(s): A46 - ERYSIPELAS Status: Acute Priority: High Current Visit: Yes - Problem List Review Problem List Initiated/Reviewed/Updated: Yes - My Orders Last 24 Hours: My Active Orders 05/11/20 07:04 Consult to Physical Therapy [PT Evaluation and Treatment] [CONS] Routine 05/11/20 08:00 hydroCHLOROthiazide 25 mg PO DAILY lisinopriL [Prinivil] 20 mg PO DAILY - Plan Plan:: Patient WBC remains elevated. Borders of infection well defined and stable but not improving. We will need to change antibiotics and repeat labs in am and reassess. If no improvement we will consider transfer to facility for Infectious disease evaluation. 05/10/20 The new antibiotics have helped and WBC has improved and symptoms have slowly improved. She continues to require IV antibiotics as the infection is only 10-20% improved. It is going in the correct direction since the change in antibiotics. Patient agrees with plan of care and we will f/u labs and re- examine in the am. 05/11/20 Patient has some improvement and WBC also improving. Overall the improvement is slow but steady and patient does continue to require IV antibiotics due to extensive infection of 90% of the left leg. F/u labs in AM and reassess in am also. 05/12/20 Healing has been slow but gradually improving. WBC has been slowly decreasing but still elevated. Redness has improved slightly and compared to days ago there is visible improvement. Daily improvement is harder to tell. Patient is slowly healing and will require continued IV Zosyn at this time to completely resolve the infection. F/u labs in AM. I will sign out to Bianca and she should sign out to Dr. Ceja on Friday.
[2020-05-13] MEDS: Piperacillin/Tazobactam 4.5 GM in Sodium Chloride 0.9% 100 ML IV SCH ×4 (03:43→21:19)
[2020-05-13] MEDS: Lactobacillus Acidophilus/Lactobacillus Sporogenes (Probiotic) Tab PO SCH (08:03)
[2020-05-13] MEDS: Lisinopril 20 MG Tab PO SCH (08:03)
[2020-05-13] MEDS: Hydrochlorothiazide 25 MG Tab PO SCH (08:03)
[2020-05-13] MEDS: Ibuprofen 600 MG Tab PO PRN ×2 (10:30→15:30)
--- NOTE | 2020-05-13 16:52 | PCM.PN ---
- General Info Date of Service: 05/13/20 Functional Status: Reports: Pain Controlled - Review of Systems General: Reports: No Symptoms Pulmonary: Reports: No Symptoms Cardiovascular: Reports: No Symptoms Gastrointestinal: Reports: No Symptoms Genitourinary: Reports: No Symptoms Musculoskeletal: Reports: Leg Pain Neurological: Reports: No Symptoms Psychiatric: Reports: No Symptoms - Patient Data Vitals - Most Recent: Last Vital Signs Temp 98.9 F 05/13/20 12:00 Pulse 81 05/13/20 12:00 Resp 16 05/13/20 12:00 BP 170/84 H 05/13/20 12:00 Pulse Ox 96 05/13/20 12:00 Weight - Most Recent: 400 lb I&O - Last 24 Hours: Intake & Output 05/13/20 05/13/20 05/13/20 06:59 14:59 22:59 Intake Total 200 Balance 200 Lab Results Last 24 Hours: Laboratory Results - last 24 hr 05/13/20 05/13/20 Range/Units 12:45 12:45 WBC 14.9 H (4.0-11.0) K/uL RBC 4.10 (3.80-5.80) M/uL Hgb 11.3 L (11.5-16.5) g/dL Hct 37.3 (37.0-47.0) % MCV 91 (76-96) fL MCH 27.6 (27.0-32.0) pg MCHC 30.3 L (31.0-35.0) g/dL RDW 15.1 (11.0-16.0) % Plt Count 504 H (150-500) K/uL MPV 9.5 (6.0-10.0) fL Neut % (Auto) 88.9 H (45.0-70.0) % Lymph % (Auto) 5.0 L (20.0-40.0) % [place] % (Auto) 4.9 (3.0-10.0) % Eos % (Auto) 0.9 L (1.0-5.0) % Baso % (Auto) 0.3 (0.0-0.5) % Neut # (Auto) 13.28 H (2.00-7.50) K/uL Lymph # (Auto) 0.75 L (1.50-4.00) K/uL [place] # (Auto) 0.73 (0.20-0.80) K/uL Eos # (Auto) 0.14 (0.04-0.40) K/uL Baso # (Auto) 0.04 (0.02-0.10) K/uL Sodium 142 (136-145) mmol/L Potassium 4.3 (3.5-5.1) mmol/L Chloride 106 (98-107) mmol/L Carbon Dioxide 27.7 (21.0-32.0) mmol/L Anion Gap 12.6 (5.0-15.0) mmol/L BUN 17 (8-26) mg/dL Creatinine 1.06 H (0.55-1.02) mg/dL Est Cr Clr Drug Dosing 59.44 mL/min Estimated GFR (MDRD) 55 L (>60) MLS/MIN BUN/Creatinine Ratio 16.0 (6-25) Glucose 112 H (74-100) mg/dL Calcium 8.7 (8.5-10.1) mg/dL Med Orders - Current: Current Medications Acetaminophen (Tylenol Extra Strength) 1,000 mg PO Q4H PRN PRN Reason: Pain Last Admin: 05/09/20 19:45 Dose: 1,000 mg Documented by: Hydrochlorothiazide (Hydrochlorothiazide) 25 mg PO DAILY [facility] Last Admin: 05/13/20 08:03 Dose: 25 mg Documented by: Ceftriaxone Sodium 2 gm/ (Sodium Chloride) 100 mls @ 100 mls/hr IV Q24H [facility] Last Admin: 05/07/20 16:05 Dose: 100 mls/hr Documented by: Piperacillin Sod/Tazobactam (Sod 4.5 gm/ Sodium Chloride) 100 mls @ 200 mls/hr IV Q6H [facility] Last Admin: 05/13/20 14:47 Dose: 200 mls/hr Documented by: Ibuprofen (Motrin) 600 mg PO Q4H PRN PRN Reason: PAIN Last Admin: 05/13/20 10:30 Dose: 600 mg Documented by: Lactobacillus Acidophilus (Acidolphilus Extra Strength) 1 tab PO DAILY [facility] Last Admin: 05/13/20 08:03 Dose: 1 tab Documented by: Lisinopril (Prinivil) 20 mg PO DAILY [facility] Last Admin: 05/13/20 08:03 Dose: 20 mg Documented by: Melatonin (Melatonin) 6 mg PO BEDTIME PRN PRN Reason: sleep Last Admin: 05/10/20 20:46 Dose: 6 mg Documented by: Nystatin (Nystop) 0 gm TOP QID PRN PRN Reason: Rash Last Admin: 05/08/20 09:42 Dose: 1 applic Documented by: Sodium Chloride (Saline Flush) 10 ml FLUSH ASDIRECTED PRN PRN Reason: Keep Vein Open Last Admin: 05/11/20 03:41 Dose: 10 ml Documented by: Discontinued Medications Hydrochlorothiazide (Hydrochlorothiazide) 12.5 mg PO DAILY [facility] Last Admin: 05/10/20 08:04 Dose: 12.5 mg Documented by: Vancomycin HCl 2 gm/ Sodium (Chloride) 250 mls @ 167 mls/hr IV Q12H [facility] Piperacillin Sod/Tazobactam (Sod 4.5 gm/ Sodium Chloride) 100 mls @ 200 mls/hr IV Q6H [facility] Last Admin: 05/08/20 09:17 Dose: 200 mls/hr Documented by: Ibuprofen (Motrin) 600 mg PO Q4H PRN PRN Reason: Pain Last Admin: 05/08/20 13:05 Dose: 600 mg Documented by: Ibuprofen (Motrin) Confirm Administered Dose 600 mg .ROUTE .STK-MED ONE Stop: 05/07/20 18:00 Last Admin: 05/07/20 18:02 Dose: Not Given Documented by: Lisinopril (Prinivil) 10 mg PO DAILY [facility] Last Admin: 05/10/20 08:03 Dose: 10 mg Documented by: Sepsis Event Note - Evaluation Sepsis Screening Result: No Definite Risk - Focused Exam Vital Signs: Vital Signs Temp Pulse Resp BP BP Pulse Ox 05/13/20 12:00 98.9 F 81 16 170/84 H 96 05/13/20 08:03 165/92 H 05/13/20 08:00 98.2 F 85 16 169/77 H 99 - Problem List Review Problem List Initiated/Reviewed/Updated: Yes - Assessment Assessment:: 05/13/2020 Checked with patient, no complaints. Is continuing the IV zosyn, WBC remains elevated, will reassess in the AM if new abx should be started. Labs ordered for AM per Dr. Kaminski - Plan Plan:: Patient WBC remains elevated. Borders of infection well defined and stable but not improving. We will need to change antibiotics and repeat labs in am and reassess. If no improvement we will consider transfer to facility for Infectious disease evaluation. 05/10/20 The new antibiotics have helped and WBC has improved and symptoms have slowly improved. She continues to require IV antibiotics as the infection is only 10-20% improved. It is going in the correct direction since the change in antibiotics. Patient agrees with plan of care and we will f/u labs and re- examine in the am. 05/11/20 Patient has some improvement and WBC also improving. Overall the improvement is slow but steady and patient does continue to require IV antibiotics due to extensive infection of 90% of the left leg. F/u labs in AM and reassess in am also. 05/12/20 Healing has been slow but gradually improving. WBC has been slowly decreasing but still elevated. Redness has improved slightly and compared to days ago there is visible improvement. Daily improvement is harder to tell. Patient is slowly healing and will require continued IV Zosyn at this time to completely resolve the infection. F/u labs in AM. I will sign out to Bianca and she should sign out to Dr. Ceja on Friday.
[2020-05-14] MEDS: Ibuprofen 600 MG Tab PO PRN ×5 (00:09→23:49)
[2020-05-14] MEDS: Piperacillin/Tazobactam 4.5 GM in Sodium Chloride 0.9% 100 ML IV SCH ×4 (03:31→20:41)
[2020-05-14] MEDS: Lisinopril 20 MG Tab PO SCH (07:46)
[2020-05-14] MEDS: Lactobacillus Acidophilus/Lactobacillus Sporogenes (Probiotic) Tab PO SCH (07:47)
[2020-05-14] MEDS: Hydrochlorothiazide 25 MG Tab PO SCH (07:47)
[2020-05-14] MEDS ORDERED: diphenhydrAMINE 50 MG Cap ONE (10:34)
[2020-05-14] MEDS: diphenhydrAMINE 50 MG Cap PO PRN ×3 (10:50→23:49)
--- NOTE | 2020-05-14 17:52 | PCM.PN ---
- General Info Date of Service: 05/14/20 Functional Status: Reports: Pain Controlled, Tolerating Diet, Ambulating - Review of Systems General: Reports: No Symptoms HEENT: Reports: No Symptoms Pulmonary: Reports: No Symptoms Cardiovascular: Reports: No Symptoms Gastrointestinal: Reports: No Symptoms Musculoskeletal: Reports: Leg Pain Skin: Reports: Other (cellulitis left leg, seems to be improving, swelling and redness in left foot decreased today. ) Neurological: Reports: No Symptoms - Patient Data Vitals - Most Recent: Last Vital Signs Temp 98.8 F 05/14/20 16:00 Pulse 83 05/14/20 16:00 Resp 16 05/14/20 16:00 BP 151/69 H 05/14/20 16:00 Pulse Ox 97 05/14/20 16:00 Weight - Most Recent: 400 lb I&O - Last 24 Hours: Intake & Output 05/14/20 05/14/20 05/14/20 06:59 14:59 22:59 Intake Total 200 Balance 200 Lab Results Last 24 Hours: Laboratory Results - last 24 hr 05/14/20 05/14/20 Range/Units 13:00 13:00 WBC 11.9 H D (4.0-11.0) K/uL RBC 3.98 (3.80-5.80) M/uL Hgb 11.0 L (11.5-16.5) g/dL Hct 36.2 L (37.0-47.0) % MCV 91 (76-96) fL MCH 27.6 (27.0-32.0) pg MCHC 30.4 L (31.0-35.0) g/dL RDW 15.0 (11.0-16.0) % Plt Count 526 H (150-500) K/uL MPV 9.3 (6.0-10.0) fL Neut % (Auto) 89.6 H (45.0-70.0) % Lymph % (Auto) 5.1 L (20.0-40.0) % [place] % (Auto) 3.4 (3.0-10.0) % Eos % (Auto) 1.6 (1.0-5.0) % Baso % (Auto) 0.3 (0.0-0.5) % Neut # (Auto) 10.64 H (2.00-7.50) K/uL Lymph # (Auto) 0.61 L (1.50-4.00) K/uL [place] # (Auto) 0.40 (0.20-0.80) K/uL Eos # (Auto) 0.19 (0.04-0.40) K/uL Baso # (Auto) 0.04 (0.02-0.10) K/uL Sodium 142 (136-145) mmol/L Potassium 4.1 (3.5-5.1) mmol/L Chloride 105 (98-107) mmol/L Carbon Dioxide 28.9 (21.0-32.0) mmol/L Anion Gap 12.2 (5.0-15.0) mmol/L BUN 18 (8-26) mg/dL Creatinine 1.17 H (0.55-1.02) mg/dL Est Cr Clr Drug Dosing 53.85 mL/min Estimated GFR (MDRD) 49 L (>60) MLS/MIN BUN/Creatinine Ratio 15.4 (6-25) Glucose 130 H (74-100) mg/dL Calcium 8.6 (8.5-10.1) mg/dL Med Orders - Current: Current Medications Acetaminophen (Tylenol Extra Strength) 1,000 mg PO Q4H PRN PRN Reason: Pain Last Admin: 05/09/20 19:45 Dose: 1,000 mg Documented by: Diphenhydramine HCl (Benadryl) 50 mg PO Q6H PRN PRN Reason: Itching Last Admin: 05/14/20 15:43 Dose: 50 mg Documented by: Hydrochlorothiazide (Hydrochlorothiazide) 25 mg PO DAILY [facility] Last Admin: 05/14/20 07:47 Dose: 25 mg Documented by: Ceftriaxone Sodium 2 gm/ (Sodium Chloride) 100 mls @ 100 mls/hr IV Q24H [facility] Last Admin: 05/07/20 16:05 Dose: 100 mls/hr Documented by: Piperacillin Sod/Tazobactam (Sod 4.5 gm/ Sodium Chloride) 100 mls @ 200 mls/hr IV Q6H [facility] Last Admin: 05/14/20 14:46 Dose: 200 mls/hr Documented by: Ibuprofen (Motrin) 600 mg PO Q4H PRN PRN Reason: PAIN Last Admin: 05/14/20 15:43 Dose: 600 mg Documented by: Lactobacillus Acidophilus (Acidolphilus Extra Strength) 1 tab PO DAILY [facility] Last Admin: 05/14/20 07:47 Dose: 1 tab Documented by: Lisinopril (Prinivil) 20 mg PO DAILY [facility] Last Admin: 05/14/20 07:46 Dose: 20 mg Documented by: Melatonin (Melatonin) 6 mg PO BEDTIME PRN PRN Reason: sleep Last Admin: 05/10/20 20:46 Dose: 6 mg Documented by: Nystatin (Nystop) 0 gm TOP QID PRN PRN Reason: Rash Last Admin: 05/08/20 09:42 Dose: 1 applic Documented by: Sodium Chloride (Saline Flush) 10 ml FLUSH ASDIRECTED PRN PRN Reason: Keep Vein Open Last Admin: 05/11/20 03:41 Dose: 10 ml Documented by: Discontinued Medications Diphenhydramine HCl (Benadryl) Confirm Administered Dose 50 mg .ROUTE .STK-MED ONE Stop: 05/14/20 10:35 Last Admin: 05/14/20 10:50 Dose: Not Given Documented by: Hydrochlorothiazide (Hydrochlorothiazide) 12.5 mg PO DAILY [facility] Last Admin: 05/10/20 08:04 Dose: 12.5 mg Documented by: Vancomycin HCl 2 gm/ Sodium (Chloride) 250 mls @ 167 mls/hr IV Q12H [facility] Piperacillin Sod/Tazobactam (Sod 4.5 gm/ Sodium Chloride) 100 mls @ 200 mls/hr IV Q6H [facility] Last Admin: 05/08/20 09:17 Dose: 200 mls/hr Documented by: Ibuprofen (Motrin) 600 mg PO Q4H PRN PRN Reason: Pain Last Admin: 05/08/20 13:05 Dose: 600 mg Documented by: Ibuprofen (Motrin) Confirm Administered Dose 600 mg .ROUTE .STK-MED ONE Stop: 05/07/20 18:00 Last Admin: 05/07/20 18:02 Dose: Not Given Documented by: Lisinopril (Prinivil) 10 mg PO DAILY [facility] Last Admin: 05/10/20 08:03 Dose: 10 mg Documented by: Sepsis Event Note - Evaluation Sepsis Screening Result: No Definite Risk - Focused Exam Vital Signs: Vital Signs Temp Temp Pulse Resp BP BP Pulse Ox 05/14/20 16:00 98.8 F 83 16 151/69 H 97 05/14/20 12:00 98.4 F 88 163/82 H 97 05/14/20 08:00 98.8 F 17 176/92 H 96 05/14/20 07:46 169/88 H - Problem List Review Problem List Initiated/Reviewed/Updated: Yes - Assessment Assessment:: 05/13/2020 Checked with patient, no complaints. Is continuing the IV zosyn, WBC remains elevated, will reassess in the AM if new abx should be started. Labs ordered for AM per Dr. Kaminski - Plan Plan:: Patient WBC remains elevated. Borders of infection well defined and stable but not improving. We will need to change antibiotics and repeat labs in am and reassess. If no improvement we will consider transfer to facility for Infectious disease evaluation. 05/10/20 The new antibiotics have helped and WBC has improved and symptoms have slowly improved. She continues to require IV antibiotics as the infection is only 10-20% improved. It is going in the correct direction since the change in antibiotics. Patient agrees with plan of care and we will f/u labs and re- examine in the am. 05/11/20 Patient has some improvement and WBC also improving. Overall the improvement is slow but steady and patient does continue to require IV antibiotics due to extensive infection of 90% of the left leg. F/u labs in AM and reassess in am also. 05/12/20 Healing has been slow but gradually improving. WBC has been slowly decreasing but still elevated. Redness has improved slightly and compared to days ago there is visible improvement. Daily improvement is harder to tell. Patient is slowly healing and will require continued IV Zosyn at this time to completely resolve the infection. F/u labs in AM. I will sign out to Bianca and she should sign out to Dr. Ceja on Friday.
[2020-05-15] MEDS: Piperacillin/Tazobactam 4.5 GM in Sodium Chloride 0.9% 100 ML IV SCH ×4 (03:15→19:50)
[2020-05-15] MEDS: Ibuprofen 600 MG Tab PO PRN ×3 (06:00→22:38)
[2020-05-15] MEDS: diphenhydrAMINE 50 MG Cap PO PRN ×2 (06:01→12:00)
[2020-05-15] MEDS ORDERED: Lisinopril 20 MG Tab ONE (08:38)
[2020-05-15] MEDS: Lisinopril 20 MG Tab PO SCH (08:40)
[2020-05-15] MEDS: Hydrochlorothiazide 25 MG Tab PO SCH (08:40)
[2020-05-15] MEDS: Lactobacillus Acidophilus/Lactobacillus Sporogenes (Probiotic) Tab PO SCH (08:40)
--- NOTE | 2020-05-15 13:43 | PCM.PN ---
- General Info Date of Service: 05/15/20 Functional Status: Reports: Pain Controlled, Tolerating Diet, Ambulating, Urinating - Review of Systems General: Reports: No Symptoms HEENT: Reports: No Symptoms Pulmonary: Reports: No Symptoms Cardiovascular: Reports: No Symptoms Gastrointestinal: Reports: No Symptoms Genitourinary: Reports: No Symptoms Musculoskeletal: Reports: Leg Pain Skin: Reports: Other (continues left leg cellulitis, improving) Neurological: Reports: No Symptoms - Patient Data Vitals - Most Recent: Last Vital Signs Temp 97.4 F 05/15/20 08:00 Pulse 80 05/15/20 08:00 Resp 16 05/15/20 08:00 BP 158/100 H 05/15/20 10:42 Pulse Ox 98 05/15/20 08:00 Weight - Most Recent: 400 lb Lab Results Last 24 Hours: Laboratory Results - last 24 hr 05/15/20 05/15/20 Range/Units 07:55 07:55 WBC 12.2 H (4.0-11.0) K/uL RBC 3.94 (3.80-5.80) M/uL Hgb 10.7 L (11.5-16.5) g/dL Hct 35.7 L (37.0-47.0) % MCV 91 (76-96) fL MCH 27.2 (27.0-32.0) pg MCHC 30.0 L (31.0-35.0) g/dL RDW 14.9 (11.0-16.0) % Plt Count 489 (150-500) K/uL MPV 9.3 (6.0-10.0) fL Neut % (Auto) 87.8 H (45.0-70.0) % Lymph % (Auto) 6.0 L (20.0-40.0) % [place] % (Auto) 4.0 (3.0-10.0) % Eos % (Auto) 2.0 (1.0-5.0) % Baso % (Auto) 0.2 (0.0-0.5) % Neut # (Auto) 10.70 H (2.00-7.50) K/uL Lymph # (Auto) 0.73 L (1.50-4.00) K/uL [place] # (Auto) 0.49 (0.20-0.80) K/uL Eos # (Auto) 0.25 (0.04-0.40) K/uL Baso # (Auto) 0.03 (0.02-0.10) K/uL Sodium 142 (136-145) mmol/L Potassium 4.4 (3.5-5.1) mmol/L Chloride 106 (98-107) mmol/L Carbon Dioxide 29.4 (21.0-32.0) mmol/L Anion Gap 11.0 (5.0-15.0) mmol/L BUN 18 (8-26) mg/dL Creatinine 1.19 H (0.55-1.02) mg/dL Est Cr Clr Drug Dosing 52.95 mL/min Estimated GFR (MDRD) 48 L (>60) MLS/MIN BUN/Creatinine Ratio 15.1 (6-25) Glucose 94 (74-100) mg/dL Calcium 8.6 (8.5-10.1) mg/dL Med Orders - Current: Current Medications Acetaminophen (Tylenol Extra Strength) 1,000 mg PO Q4H PRN PRN Reason: Pain Last Admin: 05/09/20 19:45 Dose: 1,000 mg Documented by: Diphenhydramine HCl (Benadryl) 50 mg PO Q6H PRN PRN Reason: Itching Last Admin: 05/15/20 06:01 Dose: 50 mg Documented by: Hydrochlorothiazide (Hydrochlorothiazide) 25 mg PO DAILY [facility] Last Admin: 05/15/20 08:40 Dose: 25 mg Documented by: Ceftriaxone Sodium 2 gm/ (Sodium Chloride) 100 mls @ 100 mls/hr IV Q24H [facility] Last Admin: 05/07/20 16:05 Dose: 100 mls/hr Documented by: Piperacillin Sod/Tazobactam (Sod 4.5 gm/ Sodium Chloride) 100 mls @ 200 mls/hr IV Q6H [facility] Last Admin: 05/15/20 09:00 Dose: 200 mls/hr Documented by: Ibuprofen (Motrin) 600 mg PO Q4H PRN PRN Reason: PAIN Last Admin: 05/15/20 06:00 Dose: 600 mg Documented by: Lactobacillus Acidophilus (Acidolphilus Extra Strength) 1 tab PO DAILY [facility] Last Admin: 05/15/20 08:40 Dose: 1 tab Documented by: Lisinopril (Prinivil) 20 mg PO DAILY [facility] Last Admin: 05/15/20 08:40 Dose: 20 mg Documented by: Melatonin (Melatonin) 6 mg PO BEDTIME PRN PRN Reason: sleep Last Admin: 05/10/20 20:46 Dose: 6 mg Documented by: Nystatin (Nystop) 0 gm TOP QID PRN PRN Reason: Rash Last Admin: 05/08/20 09:42 Dose: 1 applic Documented by: Sodium Chloride (Saline Flush) 10 ml FLUSH ASDIRECTED PRN PRN Reason: Keep Vein Open Last Admin: 05/11/20 03:41 Dose: 10 ml Documented by: Discontinued Medications Diphenhydramine HCl (Benadryl) Confirm Administered Dose 50 mg .ROUTE .STK-MED ONE Stop: 05/14/20 10:35 Last Admin: 05/14/20 10:50 Dose: Not Given Documented by: Hydrochlorothiazide (Hydrochlorothiazide) 12.5 mg PO DAILY [facility] Last Admin: 05/10/20 08:04 Dose: 12.5 mg Documented by: Vancomycin HCl 2 gm/ Sodium (Chloride) 250 mls @ 167 mls/hr IV Q12H [facility] Piperacillin Sod/Tazobactam (Sod 4.5 gm/ Sodium Chloride) 100 mls @ 200 mls/hr IV Q6H [facility] Last Admin: 05/08/20 09:17 Dose: 200 mls/hr Documented by: Ibuprofen (Motrin) 600 mg PO Q4H PRN PRN Reason: Pain Last Admin: 05/08/20 13:05 Dose: 600 mg Documented by: Ibuprofen (Motrin) Confirm Administered Dose 600 mg .ROUTE .STK-MED ONE Stop: 05/07/20 18:00 Last Admin: 05/07/20 18:02 Dose: Not Given Documented by: Lisinopril (Prinivil) 10 mg PO DAILY [facility] Last Admin: 05/10/20 08:03 Dose: 10 mg Documented by: Lisinopril (Prinivil) Confirm Administered Dose 20 mg .ROUTE .STK-MED ONE Stop: 05/15/20 08:39 Last Admin: 05/15/20 10:42 Dose: Not Given Documented by: Sepsis Event Note - Evaluation Sepsis Screening Result: No Definite Risk - Focused Exam Vital Signs: Vital Signs Temp Temp Pulse Resp BP BP Pulse Ox 05/15/20 10:42 158/100 H 05/15/20 08:40 158/100 H 05/15/20 08:00 97.4 F 80 16 158/100 H 98 05/15/20 04:00 97.4 F 80 16 142/73 H 98 - Problem List Review Problem List Initiated/Reviewed/Updated: Yes - Assessment Assessment:: 05/13/2020 Checked with patient, no complaints. Is continuing the IV zosyn, WBC remains elevated, will reassess in the AM if new abx should be started. Labs ordered for AM per Dr. Kaminski 05/15/2020 Patient ambulating more. Denies any SOB, CP, N/V/D, fevers. left foot shows much improvement and decreased redness/swelling. Leg is healing, no new redness noted. Continue IV abx as ordered. - Plan Plan:: Patient WBC remains elevated. Borders of infection well defined and stable but not improving. We will need to change antibiotics and repeat labs in am and reassess. If no improvement we will consider transfer to facility for Infectious disease evaluation. 05/10/20 The new antibiotics have helped and WBC has improved and symptoms have slowly improved. She continues to require IV antibiotics as the infection is only 10-20% improved. It is going in the correct direction since the change in antibiotics. Patient agrees with plan of care and we will f/u labs and re- examine in the am. 05/11/20 Patient has some improvement and WBC also improving. Overall the improvement is slow but steady and patient does continue to require IV antibiotics due to extensive infection of 90% of the left leg. F/u labs in AM and reassess in am also. 05/12/20 Healing has been slow but gradually improving. WBC has been slowly decreasing but still elevated. Redness has improved slightly and compared to days ago there is visible improvement. Daily improvement is harder to tell. Patient is slowly healing and will require continued IV Zosyn at this time to completely resolve the infection. F/u labs in AM. I will sign out to Bianca and she should sign out to Dr. Ceja on Friday.
[2020-05-15] MEDS ORDERED: hydrOXYzine HCl 25 MG Tab PO SCH (20:00)
[2020-05-16] MEDS: Piperacillin/Tazobactam 4.5 GM in Sodium Chloride 0.9% 100 ML IV SCH ×3 (02:45→09:20)
[2020-05-16] MEDS: Hydrochlorothiazide 25 MG Tab PO SCH (08:52)
[2020-05-16] MEDS: Lactobacillus Acidophilus/Lactobacillus Sporogenes (Probiotic) Tab PO SCH (08:52)
[2020-05-16] MEDS: Lisinopril 20 MG Tab PO SCH (08:53)
[2020-05-16] MEDS: Ibuprofen 600 MG Tab PO PRN ×2 (09:24→22:47)
--- NOTE | 2020-05-16 13:17 | PCM.PN ---
- General Info Date of Service: 05/16/20 Admission Dx/Problem (Free Text): Cellulitis LLE Subjective Update: Patient is a 49 y/o female who was admitted for LLE cellulitis and is on day 10 of 10 of IV Zosyn. She denies any pain, but complains of itchiness that benadryl is not helping with. Patient otherwise feels fine. - Review of Systems General: Reports: No Symptoms HEENT: Reports: No Symptoms Pulmonary: Reports: No Symptoms Cardiovascular: Reports: No Symptoms Gastrointestinal: Reports: No Symptoms Genitourinary: Reports: No Symptoms Musculoskeletal: Reports: No Symptoms Skin: Reports: Other (Redness, itchiness) Neurological: Reports: No Symptoms - Patient Data Vitals - Most Recent: Last Vital Signs Temp 36.6 C 05/16/20 12:00 Pulse 82 05/16/20 12:00 Resp 18 05/16/20 12:00 BP 153/80 H 05/16/20 12:00 Pulse Ox 99 05/16/20 12:00 Weight - Most Recent: 181.437 kg Lab Results Last 24 Hours: Laboratory Results - last 24 hr 05/16/20 Range/Units 09:12 WBC 10.5 (4.0-11.0) K/uL RBC 3.98 (3.80-5.80) M/uL Hgb 10.9 L (11.5-16.5) g/dL Hct 36.2 L (37.0-47.0) % MCV 91 (76-96) fL MCH 27.4 (27.0-32.0) pg MCHC 30.1 L (31.0-35.0) g/dL RDW 15.0 (11.0-16.0) % Plt Count 550 H (150-500) K/uL MPV 9.3 (6.0-10.0) fL Neut % (Auto) 88.5 H (45.0-70.0) % Lymph % (Auto) 4.9 L (20.0-40.0) % [place] % (Auto) 3.0 (3.0-10.0) % Eos % (Auto) 3.1 (1.0-5.0) % Baso % (Auto) 0.5 (0.0-0.5) % Neut # (Auto) 9.29 H (2.00-7.50) K/uL Lymph # (Auto) 0.51 L (1.50-4.00) K/uL [place] # (Auto) 0.31 (0.20-0.80) K/uL Eos # (Auto) 0.33 (0.04-0.40) K/uL Baso # (Auto) 0.05 (0.02-0.10) K/uL Med Orders - Current: Current Medications Acetaminophen (Tylenol Extra Strength) 1,000 mg PO Q4H PRN PRN Reason: Pain Last Admin: 05/09/20 19:45 Dose: 1,000 mg Documented by: Diphenhydramine HCl (Benadryl) 50 mg PO Q6H PRN PRN Reason: Itching Last Admin: 05/15/20 12:00 Dose: 50 mg Documented by: Hydrochlorothiazide (Hydrochlorothiazide) 25 mg PO DAILY [facility] Last Admin: 05/16/20 08:52 Dose: 25 mg Documented by: Hydroxyzine HCl (Atarax) 25 mg PO BEDTIME [facility] Last Admin: 05/15/20 21:00 Dose: 25 mg Documented by: Ceftriaxone Sodium 2 gm/ (Sodium Chloride) 100 mls @ 100 mls/hr IV Q24H [facility] Last Admin: 05/07/20 16:05 Dose: 100 mls/hr Documented by: Ibuprofen (Motrin) 600 mg PO Q4H PRN PRN Reason: PAIN Last Admin: 05/16/20 09:24 Dose: 600 mg Documented by: Lactobacillus Acidophilus (Acidolphilus Extra Strength) 1 tab PO DAILY [facility] Last Admin: 05/16/20 08:52 Dose: 1 tab Documented by: Lisinopril (Prinivil) 20 mg PO DAILY [facility] Last Admin: 05/16/20 08:53 Dose: 20 mg Documented by: Melatonin (Melatonin) 6 mg PO BEDTIME PRN PRN Reason: sleep Last Admin: 05/10/20 20:46 Dose: 6 mg Documented by: Nystatin (Nystop) 0 gm TOP QID PRN PRN Reason: Rash Last Admin: 05/08/20 09:42 Dose: 1 applic Documented by: Sodium Chloride (Saline Flush) 10 ml FLUSH ASDIRECTED PRN PRN Reason: Keep Vein Open Last Admin: 05/11/20 03:41 Dose: 10 ml Documented by: Trimethoprim/Sulfamethoxazole (Septra Ds) 1 tab PO BID [facility] Stop: 05/19/20 20:01 Discontinued Medications Diphenhydramine HCl (Benadryl) Confirm Administered Dose 50 mg .ROUTE .STK-MED ONE Stop: 05/14/20 10:35 Last Admin: 05/14/20 10:50 Dose: Not Given Documented by: Hydrochlorothiazide (Hydrochlorothiazide) 12.5 mg PO DAILY [facility] Last Admin: 05/10/20 08:04 Dose: 12.5 mg Documented by: Vancomycin HCl 2 gm/ Sodium (Chloride) 250 mls @ 167 mls/hr IV Q12H [facility] Piperacillin Sod/Tazobactam (Sod 4.5 gm/ Sodium Chloride) 100 mls @ 200 mls/hr IV Q6H [facility] Last Admin: 05/08/20 09:17 Dose: 200 mls/hr Documented by: Piperacillin Sod/Tazobactam (Sod 4.5 gm/ Sodium Chloride) 100 mls @ 200 mls/hr IV Q6H [facility] Last Admin: 05/16/20 09:20 Dose: 200 mls/hr Documented by: Ibuprofen (Motrin) 600 mg PO Q4H PRN PRN Reason: Pain Last Admin: 05/08/20 13:05 Dose: 600 mg Documented by: Ibuprofen (Motrin) Confirm Administered Dose 600 mg .ROUTE .STK-MED ONE Stop: 05/07/20 18:00 Last Admin: 05/07/20 18:02 Dose: Not Given Documented by: Lisinopril (Prinivil) 10 mg PO DAILY [facility] Last Admin: 05/10/20 08:03 Dose: 10 mg Documented by: Lisinopril (Prinivil) Confirm Administered Dose 20 mg .ROUTE .STK-MED ONE Stop: 05/15/20 08:39 Last Admin: 05/15/20 10:42 Dose: Not Given Documented by: - Exam General: Alert, Oriented, Cooperative, Other (croqueting in bed; appears com fortable) Lungs: Normal Respiratory Effort Extremities: Pedal Edema, Redness, Other (LLE with erythema and 2+ pitting edema; no purulent drainage; no induration; no fluctuance) Skin: Warm, Dry Wound/Incisions: Healing Well, Dressing Dry and Intact, No Drainage Neurological: No New Focal Deficit Psy/Mental Status: Alert, Normal Affect, Normal Mood Sepsis Event Note - Evaluation Sepsis Screening Result: No Definite Risk - Focused Exam Vital Signs: Vital Signs Temp Pulse Pulse Resp BP BP BP 05/16/20 12:00 36.6 C 82 18 153/80 H 05/16/20 08:53 179/92 H 05/16/20 08:00 36.3 C 83 20 179/92 H Pulse Ox 05/16/20 12:00 99 05/16/20 08:53 05/16/20 08:00 96 - Problem List Review Problem List Initiated/Reviewed/Updated: Yes - My Orders Last 24 Hours: My Active Orders 05/16/20 12:27 PT Evaluation and Treatment [CONS] Routine 05/16/20 20:00 Sulfamethoxazole/Trimethoprim [Septra DS] 1 tab PO BID - Assessment Assessment:: 05/13/2020 Checked with patient, no complaints. Is continuing the IV zosyn, WBC remains elevated, will reassess in the AM if new abx should be started. Labs ordered for AM per Dr. Kaminski 05/15/2020 Patient ambulating more. Denies any SOB, CP, N/V/D, fevers. left foot shows much improvement and decreased redness/swelling. Leg is healing, no new redness noted. Continue IV abx as ordered. 05/16/2020 see plan; no signs of infection; dermatitis. - Plan Plan:: Patient WBC remains elevated. Borders of infection well defined and stable but not improving. We will need to change antibiotics and repeat labs in am and reassess. If no improvement we will consider transfer to facility for Infectious disease evaluation. 05/10/20 The new antibiotics have helped and WBC has improved and symptoms have slowly improved. She continues to require IV antibiotics as the infection is only 10-20% improved. It is going in the correct direction since the change in antibiotics. Patient agrees with plan of care and we will f/u labs and re- examine in the am. 05/11/20 Patient has some improvement and WBC also improving. Overall the improvement is slow but steady and patient does continue to require IV antibiotics due to extensive infection of 90% of the left leg. F/u labs in AM and reassess in am also. 05/12/20 Healing has been slow but gradually improving. WBC has been slowly decr easing but still elevated. Redness has improved slightly and compared to days ago there is visible improvement. Daily improvement is harder to tell. Patient is slowly healing and will require continued IV Zosyn at this time to completely resolve the infection. F/u labs in AM. I will sign out to Bianca and she should sign out to Dr. Ceja on Friday. 05/16/2020 Discussed with pharmacist and will transition patient over to Bactrim DS BID x 4 days starting tonight. PT consult to evaluate patient. Will educate patient and family later today with wound care and dressing change. Plan for discharge tomorrow. Patient states she has family support at home that can help her. Follow up appointment with Dr. Ceja at 1000. Labs are unremarkable and with no leukocytosis. No signs of infection. Skin appears inflammed. No fever. Patient is agreeable to this plan and understands that if things worsen, she can always come back for re-evaluation.
[2020-05-16] MEDS ORDERED: methylPREDNISolone Sodium Succinate 125 MG/2 ML SDV IVPUSH ONE (13:21)
[2020-05-16] MEDS: Sulfamethoxazole/Trimethoprim 800-160 MG Tab PO SCH (20:00)
[2020-05-16] MEDS: hydrOXYzine HCl 25 MG Tab PO PRN (22:47)
[2020-05-17] MEDS: Ibuprofen 600 MG Tab PO PRN ×2 (08:30→23:07)
[2020-05-17] MEDS: Lactobacillus Acidophilus/Lactobacillus Sporogenes (Probiotic) Tab PO SCH (08:30)
[2020-05-17] MEDS: Sulfamethoxazole/Trimethoprim 800-160 MG Tab PO SCH ×2 (08:30→19:46)
[2020-05-17] MEDS: Lisinopril 20 MG Tab PO SCH (08:32)
[2020-05-17] MEDS: Hydrochlorothiazide 25 MG Tab PO SCH (08:32)
--- NOTE | 2020-05-17 14:15 | PCM.SN.2 ---
- Free Text/Narrative Note: Patient is a 49 y/o female, who was admitted for left lower extremity cellulitis. She received 10 days of IV Zosyn and was transitioned to PO bactrim last night. Patient has been afebrile during her stay and with barely elevated leukocytosis. Patient with underlying psoriasis and complains of itchiness. Solumedrol and hydroxyzine given yesterday with some improvement. Exam shows left lower extremity erythema and superficial wounds. No purulent or foul-smelling drainage, no induration, and no fluctuance. Lungs clear to auscultation bilaterally with no signs of distress. RRR on heart exam. Non- pitting edema to left lower extremity. Wound changes twice daily. Made appointment for patient tomorrow to follow up with Dr. Ceja, but family goes back and forth between wanting her to come back home. There is no signs of infection and patient has been stable, with normal daily labs. Patient is medically cleared and no longer needs admission for cellulitis. Given that the family is unclear whether they are willing or capable of taking care of patient with wound care, admission is looking to swing patient for additional wound care and awaiting pre-authorization with insurance. No more labs are necessary at this time. Continue to do wound changes twice daily. Bactrim DS BID (stop the night of the ). Administration working to keep patient for wound care and PT. Patient no longer meets admission criteria. Signing off on patient. Please feel free to consult if anything changes and patient needs medical evaluation.
[2020-05-17] MEDS: Acetaminophen 500 MG Tab PO PRN (15:17)
[2020-05-17] MEDS: hydrOXYzine HCl 25 MG Tab PO PRN (23:10)
[2020-05-18] MEDS: Hydrochlorothiazide 25 MG Tab PO SCH (07:42)
[2020-05-18] MEDS: Lisinopril 20 MG Tab PO SCH (07:43)
[2020-05-18] MEDS: Lactobacillus Acidophilus/Lactobacillus Sporogenes (Probiotic) Tab PO SCH (07:43)
[2020-05-18] MEDS: Sulfamethoxazole/Trimethoprim 800-160 MG Tab PO SCH (07:43)
[2020-05-18] MEDS ORDERED: Bacitracin Oint 1 GM U/D Packet ONE (10:50)
--- NOTE | 2020-05-18 11:51 | PCM.DCSUM1 ---
Discharge Summary - Hospital Course Free Text/Narrative:: Patient is a 49 y/o female with PMHx of obesity, psoriasis, and HTN, who presented to the ED for left lower extremity cellulitis. She was admitted and received wound care, IV Zosyn x 10 days, and transitioned to Bactrim. Labs were done daily and with elevated leukocytosis which down-trended to normal range 05/16/20. Patient has been afrebile during her stay and no signs of sepsis. There was concern for discharge due to wound care and family unable to help patient. However, PT was consulted today and deemed no more wound care was needed. Leave left lower extremity open to air. Apply bacitracin ointment as needed for cracked skin and lotion for moisturizer. OT was consulted today, as well, and found patient able to manage all ADLs independently. Patient expressed with morning to myself and nursing staff that she feels comfortable going home. Follow up appointment with Dr. Ceja this coming Friday at 1000. Prescriptions for lisinopril 20 mg daily, HCTZ 25 mg daily, Bactrim DS BID x 3 doses, Atarax 50 mg q8h prn for itchy, and prednisone taper (60 mg daily x 3 days, 40 mg daily x 4 days, and 20 mg daily x 3 days). Discussed with patient extensively with Alycia (nurse). Patient is comfortable with the discharge instructions and her sister, Dot, would be willing to assist her as needed. Patient encouraged to return to the ED for fever >102, unable to tolerate fluids, difficulty breathing, and/or persistent/worsening symptoms. Mentioned that patient may need to be placed on something terminal makeup operator for her psoriasis. Dr. Ceja may address this at the follow up apt or refer her to a promotor group ticket sales. - Discharge Data Discharge Date: 05/18/20 Discharge Disposition: Home, Self-Care 01 Condition: Good - Referral to Home Health Primary Care Physician: PCP None - Discharge Diagnosis/Problem(s) (1) Dermatitis SNOMED Code(s): 255793756 ICD Code: L30.9 - DERMATITIS, UNSPECIFIED Status: Acute Priority: Low Current Visit: Yes Problem Details: Cellulitis cleared during hospital stay, but LLE continues to have inflammed and dry skin. Underlying psoriasis. Infection is cleared with slight, non-purulent drainage. PT consulted and leave skin open to air. - Patient Summary/Data Consults: Consultations 05/11/20 07:04 Consult to Physical Therapy [PT Evaluation and Treatment] [CONS] Routine Please Evaluate and Treat. PT Reason for Consult: Wound Care Special Instructions: Please assess LLE and make recommendation to treat severe erysipelas This query below is only for informational purposes and is not editable. Admission Diagnosis/Problem: Cellulitis 05/16/20 12:27 PT Evaluation and Treatment [CONS] Routine Please Evaluate and Treat. PT Reason for Consult: Strengthening This query below is only for informational purposes and is not editable. Admission Diagnosis/Problem: Cellulitis 05/18/20 08:00 PT Evaluation and Treatment [CONS] Routine Please Evaluate and Treat. PT Reason for Consult: Wound Care This query below is only for informational purposes and is not editable. Admission Diagnosis/Problem: Cellulitis 05/18/20 09:55 OT Evaluation and Treatment [CONS] Routine Please Evaluate and Treat. OT Reason for Consult: ADL's This query below is only for informational purposes and is not editable. Admission Diagnosis/Problem: Cellulitis - Patient Instructions Diet: Regular Diet as Tolerated Activity: As Tolerated, Full Weight Bearing Driving: May Drive Today Showering/Bathing: May Shower Notify Provider of: Fever, Nausea and/or Vomiting - Discharge Plan *PRESCRIPTION DRUG MONITORING PROGRAM REVIEWED*: Not Applicable *COPY OF PRESCRIPTION DRUG MONITORING REPORT IN PATIENT CRAIG: Not Applicable Home Medications: Home Meds Acetaminophen [Tylenol Extra Strength] 2 tab PO Q4HR PRN 05/16/20 [History] Acidophilus/Lactobac Spor [Acidolphilus X-Strength] 1 tab PO DAILY 05/16/20 [History] Ibuprofen [Motrin] 600 mg PO Q4HR PRN 05/16/20 [History] Melatonin/Pyridoxine HCl (B6) [Melatonin 3 mg Tablet] 6 mg PO BEDTIME PRN 05/16/20 [History] Nystatin [Nystop] 1 applic QID PRN 05/16/20 [History] Sulfamethoxazole/Trimethoprim [Septra DS] 1 tab PO BID 05/16/20 [History] hydrOXYzine HCL [Hydroxyzine HCl] 1 tab PO Q8HR PRN 05/16/20 [History] hydroCHLOROthiazide [Hydrochlorothiazide] 1 tab PO DAILY 05/16/20 [History] lisinopriL [Prinivil] 1 tab PO DAILY 05/16/20 [History] Patient Handouts: Cellulitis, Adult, [id number], Hypertension, Adult, [id number], Erysipelas Forms: ED Department Discharge Referrals: PCP,None [Primary Care Provider] - - Discharge Summary/Plan Comment DC Time >30 min.: Yes (Needed multiple consultations and education) Discharge Summary/Plan Comment: Please see in beginning of note - Patient Data Vitals - Most Recent: Last Vital Signs Temp 36.7 C 05/18/20 07:42 Pulse 86 05/18/20 07:42 Resp 22 H 05/18/20 07:42 BP 163/94 H 05/18/20 07:43 Pulse Ox 95 05/18/20 07:42 Weight - Most Recent: 181.437 kg Med Orders - Current: Current Medications Acetaminophen (Tylenol Extra Strength) 1,000 mg PO Q4H PRN PRN Reason: Pain Last Admin: 05/17/20 15:17 Dose: 1,000 mg Documented by: Hydrochlorothiazide (Hydrochlorothiazide) 25 mg PO DAILY [facility] Last Admin: 05/18/20 07:42 Dose: 25 mg Documented by: Hydroxyzine HCl (Atarax) 50 mg PO Q8H PRN PRN Reason: Itching Last Admin: 05/17/20 23:10 Dose: 50 mg Documented by: Ceftriaxone Sodium 2 gm/ (Sodium Chloride) 100 mls @ 100 mls/hr IV Q24H [facility] Last Admin: 05/07/20 16:05 Dose: 100 mls/hr Documented by: Ibuprofen (Motrin) 600 mg PO Q4H PRN PRN Reason: PAIN Last Admin: 05/17/20 23:07 Dose: 600 mg Documented by: Lactobacillus Acidophilus (Acidolphilus Extra Strength) 1 tab PO DAILY [facility] Last Admin: 05/18/20 07:43 Dose: 1 tab Documented by: Lisinopril (Prinivil) 20 mg PO DAILY [facility] Last Admin: 05/18/20 07:43 Dose: 20 mg Documented by: Melatonin (Melatonin) 6 mg PO BEDTIME PRN PRN Reason: sleep Last Admin: 05/10/20 20:46 Dose: 6 mg Documented by: Nystatin (Nystop) 0 gm TOP QID PRN PRN Reason: Rash Last Admin: 05/08/20 09:42 Dose: 1 applic Documented by: Trimethoprim/Sulfamethoxazole (Septra Ds) 1 tab PO BID [facility] Stop: 05/19/20 20:01 Last Admin: 05/18/20 07:43 Dose: 1 tab Documented by: Discontinued Medications Bacitracin (Bacitracin Oint 1 Gm) Confirm Administered Dose 1 dose .ROUTE .STK- MED ONE Stop: 05/18/20 10:51 Diphenhydramine HCl (Benadryl) Confirm Administered Dose 50 mg .ROUTE .STK-MED ONE Stop: 05/14/20 10:35 Last Admin: 05/14/20 10:50 Dose: Not Given Documented by: Diphenhydramine HCl (Benadryl) 50 mg PO Q6H PRN PRN Reason: Itching Last Admin: 05/15/20 12:00 Dose: 50 mg Documented by: Hydrochlorothiazide (Hydrochlorothiazide) 12.5 mg PO DAILY [facility] Last Admin: 05/10/20 08:04 Dose: 12.5 mg Documented by: Hydroxyzine HCl (Atarax) 25 mg PO BEDTIME [facility] Last Admin: 05/15/20 21:00 Dose: 25 mg Documented by: Vancomycin HCl 2 gm/ Sodium (Chloride) 250 mls @ 167 mls/hr IV Q12H [facility] Piperacillin Sod/Tazobactam (Sod 4.5 gm/ Sodium Chloride) 100 mls @ 200 mls/hr IV Q6H [facility] Last Admin: 05/08/20 09:17 Dose: 200 mls/hr Documented by: Piperacillin Sod/Tazobactam (Sod 4.5 gm/ Sodium Chloride) 100 mls @ 200 mls/hr IV Q6H [facility] Last Admin: 05/16/20 09:20 Dose: 200 mls/hr Documented by: Ibuprofen (Motrin) 600 mg PO Q4H PRN PRN Reason: Pain Last Admin: 05/08/20 13:05 Dose: 600 mg Documented by: Ibuprofen (Motrin) Confirm Administered Dose 600 mg .ROUTE .STK-MED ONE Stop: 05/07/20 18:00 Last Admin: 05/07/20 18:02 Dose: Not Given Documented by: Lisinopril (Prinivil) 10 mg PO DAILY [facility] Last Admin: 05/10/20 08:03 Dose: 10 mg Documented by: Lisinopril (Prinivil) Confirm Administered Dose 20 mg .ROUTE .STK-MED ONE Stop: 05/15/20 08:39 Last Admin: 05/15/20 10:42 Dose: Not Given Documented by: Methylprednisolone Sodium Succinate (Solu-Medrol) 125 mg IVPUSH ONETIME ONE Stop: 05/16/20 13:22 Last Admin: 05/16/20 13:25 Dose: 125 mg Documented by: Sodium Chloride (Saline Flush) 10 ml FLUSH ASDIRECTED PRN PRN Reason: Keep Vein Open Last Admin: 05/11/20 03:41 Dose: 10 ml Documented by:
== END 2020-05-18 16:25 | disposition home or self-care (01) | DRG 603 ==
LOC: LB.ED 14:48 → LB.MS 16:08 → UNDOADMIN 16:10
PROVIDERS: ADMIT Surgery; ATTEND Family Medicine
DX: L03.116 Cellulitis of left lower limb (principal); L30.9 Dermatitis, unspecified; E66.01 Morbid (severe) obesity due to excess calories; I10 Essential (primary) hypertension; L40.9 Psoriasis, unspecified; A46 Erysipelas; Z20.828 Contact with and (suspected) exposure to other viral communicable diseases
CPT/HCPCS: 36415; 80048; 80053; 81001; 85025; 93005; 97165-GO; 99222; 99231; 99232; 99239; 99284-25; A9270-GY; J0696; J2543; J2930; J7050; U0002

== ENCOUNTER 2020-05-22 10:49 | Emergency (ER) | payer MEDICAID ==
--- NOTE | 2020-05-22 11:38 | EDM.PDOC ---
ED HPI GENERAL MEDICAL PROBLEM - General Chief Complaint: General Stated Complaint: LEG PAIN Time Seen by Provider: 05/22/20 11:15 Source of Information: Reports: Patient History Limitations: Reports: No Limitations - History of Present Illness INITIAL COMMENTS - FREE TEXT/NARRATIVE: Patient is a 49 y/o female who presents for wound check. She was seen in the clinic and sent to the ER for concerns for DVT and leg pain. Talking to patient, she denies any pain and her skin is healing up significantly. She finished her antibiotics for her cellulitis last week and on her steroid taper. Patient is ambulating and bearing weight without issues and starts back to work this friday. No fever and no drainage from her left leg. - Related Data Allergies Allergy/AdvReac Type Severity Reaction Status Date / Time No Known Allergies Allergy Verified 05/22/20 11:03 Home Meds: Home Meds Acetaminophen [Tylenol Extra Strength] 2 tab PO Q4HR PRN 05/16/20 [History] Ibuprofen [Motrin] 600 mg PO Q4HR PRN 05/16/20 [History] Melatonin/Pyridoxine HCl (B6) [Melatonin 3 mg Tablet] 6 mg PO BEDTIME PRN 05/16/20 [History] Nystatin [Nystop] 1 applic QID PRN 05/16/20 [History] Sulfamethoxazole/Trimethoprim [Septra DS] 1 tab PO BID 05/16/20 [History] hydrOXYzine HCL [Hydroxyzine HCl] 1 tab PO Q8HR PRN 05/16/20 [History] hydroCHLOROthiazide [Hydrochlorothiazide] 1 tab PO DAILY 05/16/20 [History] lisinopriL [Prinivil] 20 mg PO DAILY 05/18/20 [History] Past Medical History Cardiovascular History: Reports: Hypertension Musculoskeletal History: Reports: Arthritis Neurological History: Reports: Headaches, Chronic Endocrine/Metabolic History: Reports: Obesity/BMI 30+ Dermatologic History: Reports: Cellulitis - Past Surgical History HEENT Surgical History: Reports: Tonsillectomy Social & Family History - Family History Family Medical History: No Pertinent Family History - Tobacco Use Tobacco Use Status *Q: Never Tobacco User - Caffeine Use Caffeine Use: Reports: None ED ROS GENERAL - Review of Systems Review Of Systems: See Below Constitutional: Reports: No Symptoms HEENT: Reports: No Symptoms Respiratory: Reports: No Symptoms Cardiovascular: Reports: No Symptoms GI/Abdominal: Reports: No Symptoms : Reports: No Symptoms Musculoskeletal: Reports: No Symptoms Skin: Reports: Wound Neurological: Reports: No Symptoms Psychiatric: Reports: No Symptoms ED EXAM, GENERAL - Physical Exam Exam: See Below Exam Limited By: No Limitations General Appearance: Alert, No Apparent Distress Head: Atraumatic, Normocephalic Respiratory/Chest: No Respiratory Distress, No Accessory Muscle Use Extremities: Normal Inspection, Normal Range of Motion, Non-Tender, No Pedal Edema, Normal Capillary Refill, Other (no becki's sign) Neurological: Alert, Oriented Psychiatric: Normal Affect, Normal Mood Skin Exam: Warm, Dry, Intact, Normal Color, No Rash, Other (Patient left lower extremity with bruising where her cellulitis was, but non-tender; no pitting edema; no drainage; no induration; no fluctuance; dry scabs scattered on the leg) Course - Vital Signs Last Recorded V/S: Last Vital Signs Temp 36.4 C 05/22/20 11:04 Pulse 75 05/22/20 11:04 Resp 18 05/22/20 11:04 BP 200/104 H 05/22/20 11:04 Pulse Ox 100 05/22/20 11:04 Departure - Departure Time of Disposition: 11:45 Disposition: Home, Self-Care 01 Condition: Good Clinical Impression: Visit for wound check - Discharge Information *PRESCRIPTION DRUG MONITORING PROGRAM REVIEWED*: Not Applicable *COPY OF PRESCRIPTION DRUG MONITORING REPORT IN PATIENT CRAIG: Not Applicable Referrals: PCP,None [Primary Care Provider] - Forms: ED Department Discharge Care Plan Goals: Wound recheck. Continue to lotion daily. Take Vistaril for itching. May return to work 05/26/20 Sepsis Event Note (ED) - Evaluation Sepsis Screening Result: No Definite Risk - Focused Exam Vital Signs: Vital Signs Temp Pulse Resp BP Pulse Ox 05/22/20 11:04 36.4 C 75 18 200/104 H 100
== END 2020-05-22 11:34 | disposition home or self-care (01) ==
LOC: LB.ED 10:49
DX: Z48.00 Encounter for change or removal of nonsurgical wound dressing (principal); I10 Essential (primary) hypertension; E66.9 Obesity, unspecified; Z68.42 Body mass index [BMI] 45.0-49.9, adult; Z79.899 Other long term (current) drug therapy
CPT/HCPCS: 99282

== ENCOUNTER 2022-06-26 13:57 | Emergency (ER) | payer MEDICAID | END 2022-06-26 14:40 | disposition home or self-care (01) | LOC: LB.ED 13:57 | DX: S80.01XA Contusion of right knee, initial encounter (principal); M25.511 Pain in right shoulder; I10 Essential (primary) hypertension; M19.90 Unspecified osteoarthritis, unspecified site; E66.9 Obesity, unspecified; Z68.44 Body mass index [BMI] 60.0-69.9, adult; Z79.899 Other long term (current) drug therapy; W01.0XXA Fall on same level from slipping, tripping and stumbling without subsequent striking against object, initial encounter; Y92.89 Other specified places as the place of occurrence of the external cause; Y99.0 Civilian activity done for income or pay | CPT/HCPCS: 99283 ==

== ENCOUNTER 2023-04-08 14:54 | Observation (INO) | payer MEDICAID ==
[2023-04-08] MEDS ORDERED: Sodium Chloride 0.9% 1,000 ML IV SCH (15:00)
[2023-04-08] MEDS ORDERED: Sodium Chloride 0.9% 10 ML Syringe FLUSH PRN (15:00)
[2023-04-08 15:16] LABS: BASOPHILS ABSOLUTE AUTO 0.03 K/uL (0.02-0.10); BASOPHILS PERCENT AUTO 0.3 % (0.0-0.5); EOSINOPHILS ABSOLUTE AUTO 0.12 K/uL (0.04-0.40); EOSINOPHILS PERCENT AUTO 1.2 % (1.0-5.0); HEMATOCRIT 42.4 % (37.0-47.0); HEMOGLOBIN 13.4 g/dL (11.5-16.5); LYMPHOCYTES ABSOLUTE AUTO 0.96 K/uL (1.50-4.00); MEAN CORPUSCULAR HEMOGLOBIN 30.9 pg (27.0-32.0); MEAN CORPUSCULAR HGB CONC 31.6 g/dL (31.0-35.0); MEAN CORPUSCULAR VOLUME 98 fL (76-96); MEAN PLATELET VOLUME 9.7 fL (6.0-10.0); MONOCYTES ABSOLUTE AUTO 0.67 K/uL (0.20-0.80); NEUTROPHILS ABSOLUTE AUTO 7.84 K/uL (2.00-7.50); NEUTROPHILS PERCENT AUTO 81.5 % (45.0-70.0); PLATELET COUNT,PLT 366 K/uL (150-500); RED BLOOD CELL COUNT 4.34 M/uL (3.80-5.80); RED CELL DISTRIBUTION WIDTH 13.9 % (11.0-16.0); WHITE BLOOD CELL COUNT,WBC 9.6 K/uL (4.0-11.0)
[2023-04-08 15:35] LABS: A/G RATIO 0.8 (0.8-2.0); ALBUMIN 3.5 g/dL (3.4-5.0); ANION GAP 13.1 mmol/L (5.0-15.0); BILIRUBIN TOTAL 0.5 mg/dL (0.0-1.0); BUN/CREATININE RATIO 10.5 (6-25); CALCIUM 9.6 mg/dL (8.5-10.1); CARBON DIOXIDE,CO2 28.4 mmol/L (21.0-32.0); CREATININE 1.71 mg/dL (0.55-1.02); EST CRCL DRUG DOSING (CG) 34.24 mL/min; MAGNESIUM 1.4 mg/dL (1.8-2.4); PHOSPHORUS 3.7 mg/dL (2.5-4.9); POTASSIUM,K 3.5 mmol/L (3.5-5.1)
[2023-04-08] MEDS ORDERED: Ondansetron 4 MG/2 ML SDV IV PRN (17:19)
[2023-04-08] MEDS ORDERED: Lactobacillus Acidophilus/Lactobacillus Sporogenes (Probiotic) Tab ONE (18:24)
[2023-04-08] MEDS: Lactated Ringers 1,000 ML IV SCH (18:38)
[2023-04-08] MEDS: Heparin Sodium 5,000 Units/ML Vial SUBCUT SCH (18:47)
[2023-04-08] MEDS: Lactobacillus Acidophilus/Lactobacillus Sporogenes (Probiotic) Tab PO SCH (18:48)
[2023-04-09] MEDS: Heparin Sodium 5,000 Units/ML Vial SUBCUT SCH ×3 (02:15→17:17)
[2023-04-09] MEDS: Lactated Ringers 1,000 ML IV SCH (04:45)
[2023-04-09 08:05] LABS: APPEARANCE,URINE CLEAR (CLEAR); BILIRUBIN,URINE NEGATIVE (NEGATIVE); COLOR,URINE YELLOW; GLUCOSE,URINE NEGATIVE (NEGATIVE); KETONES,URINE NEGATIVE (NEGATIVE); LEUKOCYTE ESTERASE,URINE TRACE (NEGATIVE); NITRITE,URINE NEGATIVE (NEGATIVE); OCCULT BLOOD,URINE NEGATIVE (NEGATIVE); PH,URINE 5.5 (5.0-8.0); PROTEIN,URINE NEGATIVE (NEGATIVE); UROBILINOGEN,URINE 0.2 E.U./dL (0.2-1.0)
[2023-04-09 08:07] LABS: ANION GAP 10.7 mmol/L (5.0-15.0); BUN/CREATININE RATIO 12.8 (6-25); CALCIUM 8.8 mg/dL (8.5-10.1); CREATININE 1.25 mg/dL (0.55-1.02); EST CRCL DRUG DOSING (CG) 46.84 mL/min; POTASSIUM,K 3.7 mmol/L (3.5-5.1); RBC,URINE NOT SEEN /HPF
[2023-04-09 08:09] LABS: EPITHELIAL CELLS,URINE OCCASIONAL /HPF
[2023-04-09] MEDS ORDERED: Lisinopril 20 MG Tab ONE (08:26)
[2023-04-09] MEDS: Multivitamin, Childrens Tab.Chew PO SCH (08:32)
[2023-04-09] MEDS: Lisinopril 20 MG Tab PO SCH (08:32)
[2023-04-09] MEDS: Lactobacillus Acidophilus/Lactobacillus Sporogenes (Probiotic) Tab PO SCH (08:32)
[2023-04-09] MEDS: Acetaminophen 325 MG Tab PO PRN ×2 (09:31→17:17)
[2023-04-09] MEDS ORDERED: Ketorolac 60 MG/2 ML SDV IVPUSH ONE (10:22)
[2023-04-09] MEDS ORDERED: Ketorolac 30 MG/ML SDV IVPUSH ONE (10:45)
[2023-04-10] MEDS: Acetaminophen 325 MG Tab PO PRN (00:39)
[2023-04-10] MEDS: Heparin Sodium 5,000 Units/ML Vial SUBCUT SCH (00:39)
[2023-04-10] MEDS: Lisinopril 20 MG Tab PO SCH (07:37)
[2023-04-10] MEDS: Multivitamin, Childrens Tab.Chew PO SCH (07:37)
[2023-04-10] MEDS: Lactobacillus Acidophilus/Lactobacillus Sporogenes (Probiotic) Tab PO SCH (07:37)
[2023-04-10 07:40] VITALS: BP 156/53
[2023-04-10 08:01] VITALS: PULSE 97
== END 2023-04-10 10:00 | disposition home or self-care (01) ==
LOC: LB.ED 14:54 → SUPCPDRO 14:54 → LB.MS 17:00 → UNDOADMOB 17:00 → LB.MS 17:19
PROVIDERS: ADMIT Surgery; ATTEND Surgery
DX: E86.0 Dehydration (principal); N17.9 Acute kidney failure, unspecified; E83.42 Hypomagnesemia; F41.9 Anxiety disorder, unspecified; M17.0 Bilateral primary osteoarthritis of knee; I12.9 Hypertensive chronic kidney disease with stage 1 through stage 4 chronic kidney disease, or unspecified chronic kidney disease; N18.9 Chronic kidney disease, unspecified; E66.01 Morbid (severe) obesity due to excess calories; Z79.899 Other long term (current) drug therapy; Z68.44 Body mass index [BMI] 60.0-69.9, adult
CPT/HCPCS: 36415; 73080-RT; 80048; 80053; 81001; 83735; 84100; 85025; 87086; 93005; 96360; 96361; 96365; 96372; 96375; 99222; 99238; 99285-25; A9270-GY; G0378; J1644; J1885; J3475; J7030; J7120

== ENCOUNTER 2023-04-10 15:57 | Inpatient (IN) | payer MEDICAID ==
[2023-04-10] MEDS ORDERED: Sodium Chloride 0.9% 10 ML Syringe FLUSH PRN (16:28)
[2023-04-10 17:12] LABS: HEMATOCRIT 37.9 % (37.0-47.0); HEMOGLOBIN 12.1 g/dL (11.5-16.5); MEAN CORPUSCULAR HEMOGLOBIN 30.7 pg (27.0-32.0); MEAN CORPUSCULAR HGB CONC 31.9 g/dL (31.0-35.0); RED BLOOD CELL COUNT 3.94 M/uL (3.80-5.80); RED CELL DISTRIBUTION WIDTH 13.5 % (11.0-16.0)
[2023-04-10 17:15] LABS: WHITE BLOOD CELL COUNT,WBC 20.7 K/uL (4.0-11.0)
[2023-04-10 17:34] LABS: A/G RATIO 0.6 (0.8-2.0); ALBUMIN 2.8 g/dL (3.4-5.0); ANION GAP 12.7 mmol/L (5.0-15.0); BILIRUBIN TOTAL 0.9 mg/dL (0.0-1.0); BUN/CREATININE RATIO 17.4 (6-25); CALCIUM 8.9 mg/dL (8.5-10.1); CREATININE 1.38 mg/dL (0.55-1.02); EST CRCL DRUG DOSING (CG) 42.42 mL/min; MAGNESIUM 1.6 mg/dL (1.8-2.4); PHOSPHORUS 2.6 mg/dL (2.5-4.9); POTASSIUM,K 3.7 mmol/L (3.5-5.1); PROTEIN TOTAL,TP 7.5 g/dL (6.4-8.2)
[2023-04-10 17:48] LABS: APPEARANCE,URINE CLEAR (CLEAR); BILIRUBIN,URINE NEGATIVE (NEGATIVE); COLOR,URINE YELLOW; GLUCOSE,URINE NEGATIVE (NEGATIVE); KETONES,URINE NEGATIVE (NEGATIVE); LEUKOCYTE ESTERASE,URINE NEGATIVE (NEGATIVE); NITRITE,URINE NEGATIVE (NEGATIVE); OCCULT BLOOD,URINE TRACE-INTACT (NEGATIVE); PROTEIN,URINE 30 mg/dL (NEGATIVE); UROBILINOGEN,URINE 0.2 E.U./dL (0.2-1.0)
[2023-04-10 17:52] LABS: RBC,URINE 0-5 /HPF; SQUAMOUS EPITHELIAL CELLS,UR FEW /HPF; WBC,URINE 0-5 /HPF
[2023-04-10] MEDS ORDERED: Piperacillin/Tazobactam 3.375 GM in Sodium Chloride 0.9% 100 ML IV SCH (19:15)
[2023-04-10] MEDS ORDERED: Cholecalciferol (Vitamin D3) 2,000 Unit Cap ONE (19:46)
[2023-04-10] MEDS ORDERED: Nystatin Crm 30 GM Tube TOP SCH ×2 (20:00)
[2023-04-10] MEDS ORDERED: Nystatin Topical Powder 15 GM Bottle TOP SCH (20:00)
[2023-04-10] MEDS: Piperacillin/Tazobactam 3.375 GM in Sodium Chloride 0.9% 100 ML IV SCH (20:02)
[2023-04-10] MEDS: Non-Formulary Medication 1 Each (Cholecalciferol (Vitamin D3) [Vitamin D3] 50 MCG Tablet) PO SCH (20:02)
[2023-04-10] MEDS: Lactated Ringers 1,000 ML IV SCH (21:17)
[2023-04-10] MEDS: Nystatin Topical Powder 15 GM Bottle TOP SCH (21:17)
[2023-04-10] MEDS: Acetaminophen 325 MG Tab PO PRN (22:16)
[2023-04-11] MEDS: Piperacillin/Tazobactam 3.375 GM in Sodium Chloride 0.9% 100 ML IV SCH ×4 (01:48→19:35)
[2023-04-11] MEDS: Acetaminophen 325 MG Tab PO PRN ×2 (02:37→17:39)
[2023-04-11] MEDS ORDERED: Enoxaparin 40 MG/0.4 ML Syringe SUBCUT SCH (08:00)
[2023-04-11] MEDS ORDERED: Cholecalciferol (Vitamin D3) 25 MCG Tab ONE (08:01)
[2023-04-11 08:02] LABS: HEMATOCRIT 35.5 % (37.0-47.0); HEMOGLOBIN 11.2 g/dL (11.5-16.5); MEAN CORPUSCULAR HEMOGLOBIN 30.7 pg (27.0-32.0); MEAN CORPUSCULAR HGB CONC 31.5 g/dL (31.0-35.0); MEAN PLATELET VOLUME 9.9 fL (6.0-10.0); RED BLOOD CELL COUNT 3.65 M/uL (3.80-5.80); RED CELL DISTRIBUTION WIDTH 13.6 % (11.0-16.0); WHITE BLOOD CELL COUNT,WBC 16.3 K/uL (4.0-11.0)
[2023-04-11] MEDS: Lisinopril 20 MG Tab PO SCH (08:06)
[2023-04-11] MEDS: Non-Formulary Medication 1 Each (Cholecalciferol (Vitamin D3) [Vitamin D3] 50 MCG Tablet) PO SCH (08:08)
[2023-04-11] MEDS: Nystatin Topical Powder 15 GM Bottle TOP SCH ×2 (08:10→19:37)
[2023-04-11 08:37] LABS: HEMOGLOBIN A1C 5.4 % (< 5.7)
[2023-04-11 08:47] LABS: ANION GAP 10.8 mmol/L (5.0-15.0); BUN/CREATININE RATIO 18.7 (6-25); CALCIUM 8.8 mg/dL (8.5-10.1); CARBON DIOXIDE,CO2 28.7 mmol/L (21.0-32.0); CREATININE 1.34 mg/dL (0.55-1.02); EST CRCL DRUG DOSING (CG) 43.69 mL/min; POTASSIUM,K 3.5 mmol/L (3.5-5.1); TSH ULTRASENSITIVE 1.506 uIU/mL (0.358-3.740)
[2023-04-11] MEDS: Lactated Ringers 1,000 ML IV SCH (11:13)
[2023-04-11] MEDS: Apixaban 5 MG Tab PO SCH ×2 (11:28→19:38)
[2023-04-11] MEDS ORDERED: Vancomycin 2 GM in Sodium Chloride 0.9% 500 ML IV ONE (12:00)
[2023-04-12] MEDS: Lactated Ringers 1,000 ML IV SCH (01:53)
[2023-04-12] MEDS: Piperacillin/Tazobactam 3.375 GM in Sodium Chloride 0.9% 100 ML IV SCH ×4 (01:54→19:35)
[2023-04-12] MEDS: Acetaminophen 325 MG Tab PO PRN ×3 (01:55→19:33)
[2023-04-12] MEDS: Apixaban 5 MG Tab PO SCH ×2 (07:52→19:34)
[2023-04-12] MEDS: Lisinopril 20 MG Tab PO SCH (07:53)
[2023-04-12] MEDS: Cholecalciferol (Vitamin D3) 25 MCG Tab PO SCH (07:53)
[2023-04-12] MEDS: Nystatin Topical Powder 15 GM Bottle TOP SCH ×2 (08:56→19:31)
[2023-04-12 09:22] LABS: HEMATOCRIT 38.1 % (37.0-47.0); HEMOGLOBIN 11.8 g/dL (11.5-16.5); MEAN CORPUSCULAR HEMOGLOBIN 30.3 pg (27.0-32.0); MEAN PLATELET VOLUME 10.1 fL (6.0-10.0); RED BLOOD CELL COUNT 3.89 M/uL (3.80-5.80); RED CELL DISTRIBUTION WIDTH 13.6 % (11.0-16.0); WHITE BLOOD CELL COUNT,WBC 14.6 K/uL (4.0-11.0)
[2023-04-12 09:32] LABS: ANION GAP 16.5 mmol/L (5.0-15.0); BUN/CREATININE RATIO 15.8 (6-25); CALCIUM 8.9 mg/dL (8.5-10.1); CARBON DIOXIDE,CO2 25.3 mmol/L (21.0-32.0); CREATININE 1.71 mg/dL (0.55-1.02); EST CRCL DRUG DOSING (CG) 34.24 mL/min; POTASSIUM,K 3.8 mmol/L (3.5-5.1)
[2023-04-13] MEDS: Piperacillin/Tazobactam 3.375 GM in Sodium Chloride 0.9% 100 ML IV SCH ×4 (02:03→20:09)
[2023-04-13] MEDS: Cholecalciferol (Vitamin D3) 25 MCG Tab PO SCH (08:01)
[2023-04-13] MEDS: Lisinopril 20 MG Tab PO SCH (08:01)
[2023-04-13] MEDS: Apixaban 5 MG Tab PO SCH ×2 (08:01→20:08)
[2023-04-13] MEDS: Nystatin Topical Powder 15 GM Bottle TOP SCH ×2 (08:37→20:22)
[2023-04-13] MEDS: Acetaminophen 325 MG Tab PO PRN ×2 (09:50→14:39)
[2023-04-13] MEDS ORDERED: VANCOmycin 1.5 GM/300 ML 1.5 GM in Premix Bag 1 BAG IV SCH (11:00)
[2023-04-13] MEDS ORDERED: Ibuprofen 600 MG Tab PO PRN (14:07)
[2023-04-14] MEDS: Piperacillin/Tazobactam 3.375 GM in Sodium Chloride 0.9% 100 ML IV SCH ×3 (01:43→13:31)
[2023-04-14] MEDS: Acetaminophen 325 MG Tab PO PRN ×2 (01:45→15:15)
[2023-04-14] MEDS: Apixaban 5 MG Tab PO SCH ×2 (07:51→19:36)
[2023-04-14] MEDS: Nystatin Topical Powder 15 GM Bottle TOP SCH ×2 (07:51→19:36)
[2023-04-14] MEDS: Cholecalciferol (Vitamin D3) 25 MCG Tab PO SCH (07:51)
[2023-04-14] MEDS: Lisinopril 20 MG Tab PO SCH (07:52)
[2023-04-14 07:58] LABS: BASOPHILS ABSOLUTE AUTO 0.01 K/uL (0.02-0.10); BASOPHILS PERCENT AUTO 0.1 % (0.0-0.5); EOSINOPHILS ABSOLUTE AUTO 0.59 K/uL (0.04-0.40); EOSINOPHILS PERCENT AUTO 6.6 % (1.0-5.0); HEMATOCRIT 36.4 % (37.0-47.0); HEMOGLOBIN 11.1 g/dL (11.5-16.5); LYMPHOCYTES ABSOLUTE AUTO 0.38 K/uL (1.50-4.00); LYMPHOCYTES PERCENT AUTO 4.2 % (20.0-40.0); MEAN CORPUSCULAR HEMOGLOBIN 30.2 pg (27.0-32.0); MEAN CORPUSCULAR HGB CONC 30.5 g/dL (31.0-35.0); MEAN CORPUSCULAR VOLUME 99 fL (76-96); MEAN PLATELET VOLUME 10.5 fL (6.0-10.0); MONOCYTES ABSOLUTE AUTO 0.65 K/uL (0.20-0.80); MONOCYTES PERCENT AUTO 7.2 % (3.0-10.0); NEUTROPHILS ABSOLUTE AUTO 7.36 K/uL (2.00-7.50); NEUTROPHILS PERCENT AUTO 81.9 % (45.0-70.0); PLATELET COUNT,PLT 342 K/uL (150-500); RED BLOOD CELL COUNT 3.67 M/uL (3.80-5.80); RED CELL DISTRIBUTION WIDTH 13.9 % (11.0-16.0)
[2023-04-14 08:47] LABS: ANION GAP 12.6 mmol/L (5.0-15.0); BUN/CREATININE RATIO 20.5 (6-25); CALCIUM 9.3 mg/dL (8.5-10.1); CARBON DIOXIDE,CO2 28.3 mmol/L (21.0-32.0); CREATININE 1.32 mg/dL (0.55-1.02); EST CRCL DRUG DOSING (CG) 44.35 mL/min; POTASSIUM,K 3.9 mmol/L (3.5-5.1)
[2023-04-14] MEDS ORDERED: Ibuprofen 600 MG Tab PO PRN (08:59)
[2023-04-14] MEDS ORDERED: Ibuprofen 400 MG Tab ONE (09:38)
[2023-04-14] MEDS: Ibuprofen 400 MG Tab PO PRN (09:53)
[2023-04-14] MEDS: diphenhydrAMINE 50 MG Cap PO PRN (20:31)
[2023-04-15] MEDS: Lisinopril 20 MG Tab PO SCH (07:28)
[2023-04-15] MEDS: Ibuprofen 400 MG Tab PO PRN (07:28)
[2023-04-15] MEDS: Cholecalciferol (Vitamin D3) 25 MCG Tab PO SCH (07:29)
[2023-04-15] MEDS: Apixaban 5 MG Tab PO SCH ×2 (07:29→19:28)
[2023-04-15] MEDS: Nystatin Topical Powder 15 GM Bottle TOP SCH ×2 (07:31→19:29)
[2023-04-15] MEDS: diphenhydrAMINE 50 MG Cap PO PRN (07:54)
[2023-04-15] MEDS ORDERED: predniSONE 20 MG Tab PO ONE (09:27)
[2023-04-15] MEDS: Cetirizine 10 MG Tab PO SCH ×2 (09:43→19:29)
[2023-04-15] MEDS: Famotidine 20 MG Tab PO SCH ×2 (09:43→19:28)
[2023-04-15] MEDS ORDERED: Loperamide 2 MG Cap PO PRN (17:15)
[2023-04-16] MEDS: diphenhydrAMINE 50 MG Cap PO PRN ×2 (00:09→19:46)
[2023-04-16] MEDS ORDERED: predniSONE 20 MG Tab PO ONE (07:59)
[2023-04-16] MEDS: Famotidine 20 MG Tab PO SCH ×2 (08:03→19:46)
[2023-04-16] MEDS: Cetirizine 10 MG Tab PO SCH ×2 (08:03→19:47)
[2023-04-16] MEDS: Cholecalciferol (Vitamin D3) 25 MCG Tab PO SCH (08:03)
[2023-04-16] MEDS: Apixaban 5 MG Tab PO SCH ×2 (08:04→19:46)
[2023-04-16] MEDS: Nystatin Topical Powder 15 GM Bottle TOP SCH ×2 (08:04→19:46)
[2023-04-16] MEDS: Lisinopril 20 MG Tab PO SCH (08:07)
[2023-04-16] MEDS: Acetaminophen 325 MG Tab PO PRN (14:00)
[2023-04-17] MEDS: Famotidine 20 MG Tab PO SCH ×2 (08:15→20:15)
[2023-04-17] MEDS: Lisinopril 20 MG Tab PO SCH (08:16)
[2023-04-17] MEDS: Apixaban 5 MG Tab PO SCH ×2 (08:18→20:13)
[2023-04-17] MEDS: Cholecalciferol (Vitamin D3) 25 MCG Tab PO SCH (08:18)
[2023-04-17] MEDS: Cetirizine 10 MG Tab PO SCH ×2 (08:19→20:16)
[2023-04-17] MEDS: Nystatin Topical Powder 15 GM Bottle TOP SCH ×2 (08:20→20:14)
[2023-04-17 08:25] LABS: BASOPHILS ABSOLUTE AUTO 0.03 K/uL (0.02-0.10); BASOPHILS PERCENT AUTO 0.3 % (0.0-0.5); EOSINOPHILS PERCENT AUTO 7.5 % (1.0-5.0); HEMATOCRIT 36.3 % (37.0-47.0); HEMOGLOBIN 11.1 g/dL (11.5-16.5); LYMPHOCYTES ABSOLUTE AUTO 1.29 K/uL (1.50-4.00); LYMPHOCYTES PERCENT AUTO 13.9 % (20.0-40.0); MEAN CORPUSCULAR HEMOGLOBIN 29.9 pg (27.0-32.0); MEAN CORPUSCULAR HGB CONC 30.6 g/dL (31.0-35.0); MEAN CORPUSCULAR VOLUME 98 fL (76-96); MEAN PLATELET VOLUME 9.8 fL (6.0-10.0); MONOCYTES ABSOLUTE AUTO 0.63 K/uL (0.20-0.80); MONOCYTES PERCENT AUTO 6.8 % (3.0-10.0); NEUTROPHILS ABSOLUTE AUTO 6.66 K/uL (2.00-7.50); NEUTROPHILS PERCENT AUTO 71.5 % (45.0-70.0); PLATELET COUNT,PLT 495 K/uL (150-500); RED BLOOD CELL COUNT 3.71 M/uL (3.80-5.80); RED CELL DISTRIBUTION WIDTH 13.6 % (11.0-16.0); WHITE BLOOD CELL COUNT,WBC 9.3 K/uL (4.0-11.0)
[2023-04-17 08:59] LABS: ANION GAP 10.9 mmol/L (5.0-15.0); BUN/CREATININE RATIO 30.4 (6-25); CALCIUM 9.3 mg/dL (8.5-10.1); CARBON DIOXIDE,CO2 29.2 mmol/L (21.0-32.0); CREATININE 1.15 mg/dL (0.55-1.02); EST CRCL DRUG DOSING (CG) 50.91 mL/min; POTASSIUM,K 4.1 mmol/L (3.5-5.1)
[2023-04-17] MEDS: Ibuprofen 400 MG Tab PO PRN (10:27)
[2023-04-17] MEDS: Acetaminophen 325 MG Tab PO PRN (20:15)
[2023-04-18] MEDS: Nystatin Topical Powder 15 GM Bottle TOP SCH (08:10)
[2023-04-18] MEDS: Famotidine 20 MG Tab PO SCH (08:10)
[2023-04-18] MEDS: Apixaban 5 MG Tab PO SCH (08:10)
[2023-04-18] MEDS: Lisinopril 20 MG Tab PO SCH (08:11)
[2023-04-18] MEDS: Cholecalciferol (Vitamin D3) 25 MCG Tab PO SCH (08:11)
[2023-04-18] MEDS: Cetirizine 10 MG Tab PO SCH (08:14)
== END 2023-04-18 12:30 | disposition swing bed (61) | DRG 948 ==
LOC: LB.ED 15:57 → LB.MS 18:45 → LB.ED 18:45 → LB.MS 04-18 08:19
PROVIDERS: ADMIT Surgery; ATTEND Surgery
DX: R53.81 Other malaise (principal); N17.9 Acute kidney failure, unspecified; Z68.44 Body mass index [BMI] 60.0-69.9, adult; L03.116 Cellulitis of left lower limb; R53.1 Weakness; E86.0 Dehydration; I10 Essential (primary) hypertension; E66.01 Morbid (severe) obesity due to excess calories; M19.90 Unspecified osteoarthritis, unspecified site; T73.2XXA Exhaustion due to exposure, initial encounter; E83.42 Hypomagnesemia; M17.0 Bilateral primary osteoarthritis of knee; G89.29 Other chronic pain; M54.50 Low back pain, unspecified; F41.9 Anxiety disorder, unspecified; L27.0 Generalized skin eruption due to drugs and medicaments taken internally; Z79.899 Other long term (current) drug therapy
CPT/HCPCS: 36415; 71045; 72131; 74176; 80048; 80053; 80061; 80202; 81001; 83036; 83605; 83735; 84100; 84443; 85025; 85027; 85379; 87040; 96374; 97161-GP; 97165-GO; 97530-GO; 97530-GP; 99222; 99232; 99239; 99285-25; A0425; A0429; A9270-GY; J1650; J2543; J3370; J3490; J7040; J7050; J7120; J7512

== ENCOUNTER 2023-04-18 11:07 | Inpatient (IN) | payer MEDICAID ==
[2023-04-18] MEDS: Acetaminophen 325 MG Tab PO PRN (15:59)
[2023-04-18] MEDS: Hydrocortisone Acetate 1% Crm 30 GM Tube TOP SCH (20:00)
[2023-04-18] MEDS ORDERED: HYDROCORTISONE TP SCH (20:00)
[2023-04-18] MEDS ORDERED: CRISABOROLE TP SCH (20:00)
[2023-04-19] MEDS: Acetaminophen 325 MG Tab PO PRN ×2 (01:30→19:23)
[2023-04-19] MEDS ORDERED: CALCIPOTRIENE MC SCH (08:00)
[2023-04-19] MEDS: Hydrochlorothiazide 25 MG Tab PO SCH (09:04)
[2023-04-19] MEDS: Hydrocortisone Acetate 1% Crm 30 GM Tube TOP SCH ×2 (09:04→19:23)
[2023-04-19] MEDS: Cholecalciferol (Vitamin D3) 25 MCG Tab PO SCH (09:04)
[2023-04-19] MEDS: Lisinopril 20 MG Tab PO SCH (09:05)
[2023-04-19] MEDS: Melatonin 3 MG Tab PO PRN (21:35)
[2023-04-20] MEDS: Cholecalciferol (Vitamin D3) 25 MCG Tab PO SCH (07:55)
[2023-04-20] MEDS: Hydrochlorothiazide 25 MG Tab PO SCH (07:56)
[2023-04-20] MEDS: Lisinopril 20 MG Tab PO SCH (07:56)
[2023-04-20] MEDS: Hydrocortisone Acetate 1% Crm 30 GM Tube TOP SCH ×2 (07:56→20:00)
[2023-04-20] MEDS: Apixaban 5 MG Tab PO SCH ×2 (11:20→19:57)
[2023-04-20] MEDS: Acetaminophen 325 MG Tab PO PRN (18:01)
[2023-04-20] MEDS: Melatonin 3 MG Tab PO PRN (19:57)
[2023-04-21] MEDS: Hydrochlorothiazide 25 MG Tab PO SCH (08:07)
[2023-04-21] MEDS: Apixaban 5 MG Tab PO SCH ×2 (08:07→19:30)
[2023-04-21] MEDS: Lisinopril 20 MG Tab PO SCH (08:08)
[2023-04-21] MEDS: Cholecalciferol (Vitamin D3) 25 MCG Tab PO SCH (08:08)
[2023-04-21] MEDS: Acetaminophen 325 MG Tab PO PRN ×3 (08:08→19:30)
[2023-04-21] MEDS: Hydrocortisone Acetate 1% Crm 30 GM Tube TOP SCH ×2 (08:08→19:31)
[2023-04-21] MEDS: Melatonin 3 MG Tab PO PRN (19:30)
[2023-04-22] MEDS: Lisinopril 20 MG Tab PO SCH (09:20)
[2023-04-22] MEDS: Acetaminophen 325 MG Tab PO PRN (09:24)
[2023-04-22] MEDS: Cholecalciferol (Vitamin D3) 25 MCG Tab PO SCH (09:24)
[2023-04-22] MEDS: Hydrochlorothiazide 25 MG Tab PO SCH (09:24)
[2023-04-22] MEDS: Apixaban 5 MG Tab PO SCH ×2 (09:24→19:40)
[2023-04-22] MEDS: Hydrocortisone Acetate 1% Crm 30 GM Tube TOP SCH ×2 (09:25→19:41)
[2023-04-22] MEDS: Ibuprofen 400 MG Tab PO PRN (19:40)
[2023-04-22] MEDS: Melatonin 3 MG Tab PO PRN (19:41)
[2023-04-23] MEDS: Hydrochlorothiazide 25 MG Tab PO SCH (08:14)
[2023-04-23] MEDS: Apixaban 5 MG Tab PO SCH ×2 (08:14→19:39)
[2023-04-23] MEDS: Lisinopril 20 MG Tab PO SCH (08:14)
[2023-04-23] MEDS: Hydrocortisone Acetate 1% Crm 30 GM Tube TOP SCH ×2 (08:15→19:42)
[2023-04-23] MEDS: Cholecalciferol (Vitamin D3) 25 MCG Tab PO SCH (08:15)
[2023-04-23] MEDS: Acetaminophen 325 MG Tab PO PRN (13:04)
[2023-04-23] MEDS: Melatonin 3 MG Tab PO PRN (19:41)
[2023-04-23] MEDS: Ibuprofen 400 MG Tab PO PRN (19:41)
[2023-04-24] MEDS: Apixaban 5 MG Tab PO SCH ×2 (07:21→20:50)
[2023-04-24] MEDS: Lisinopril 20 MG Tab PO SCH (07:21)
[2023-04-24] MEDS: Hydrochlorothiazide 25 MG Tab PO SCH (07:22)
[2023-04-24] MEDS: Cholecalciferol (Vitamin D3) 25 MCG Tab PO SCH (07:22)
[2023-04-24] MEDS: Hydrocortisone Acetate 1% Crm 30 GM Tube TOP SCH ×2 (07:23→20:00)
[2023-04-24] MEDS: Acetaminophen 325 MG Tab PO PRN ×2 (11:49→23:00)
[2023-04-24] MEDS: Ibuprofen 400 MG Tab PO PRN (20:50)
[2023-04-24] MEDS: Melatonin 3 MG Tab PO PRN (20:50)
[2023-04-25] MEDS ORDERED: Nystatin Topical Powder 15 GM Bottle ONE (08:08)
[2023-04-25] MEDS: Lisinopril 20 MG Tab PO SCH (08:10)
[2023-04-25] MEDS: Hydrochlorothiazide 25 MG Tab PO SCH (08:10)
[2023-04-25] MEDS: Apixaban 5 MG Tab PO SCH ×2 (08:10→19:39)
[2023-04-25] MEDS: Cholecalciferol (Vitamin D3) 25 MCG Tab PO SCH (08:10)
[2023-04-25] MEDS: Ibuprofen 400 MG Tab PO PRN ×2 (08:10→19:40)
[2023-04-25] MEDS: Hydrocortisone Acetate 1% Crm 30 GM Tube TOP SCH ×2 (08:16→19:40)
[2023-04-25] MEDS: Acetaminophen 325 MG Tab PO PRN ×2 (15:02→23:04)
[2023-04-25] MEDS: Psyllium Husk Powder Sugar Free 5.85 GM Packet PO SCH (17:49)
[2023-04-25] MEDS: Melatonin 3 MG Tab PO PRN (19:40)
[2023-04-26] MEDS: Hydrocortisone Acetate 1% Crm 30 GM Tube TOP SCH ×2 (08:06→20:50)
[2023-04-26] MEDS: Hydrochlorothiazide 25 MG Tab PO SCH (08:06)
[2023-04-26] MEDS: Apixaban 5 MG Tab PO SCH ×2 (08:06→20:50)
[2023-04-26] MEDS: Cholecalciferol (Vitamin D3) 25 MCG Tab PO SCH (08:07)
[2023-04-26] MEDS: Psyllium Husk Powder Sugar Free 5.85 GM Packet PO SCH (08:07)
[2023-04-26] MEDS: Lisinopril 20 MG Tab PO SCH (08:08)
[2023-04-26] MEDS: Acetaminophen 325 MG Tab PO PRN (09:27)
[2023-04-26] MEDS ORDERED: Melatonin 3 MG Tab PO PRN (19:47)
[2023-04-26] MEDS: Melatonin 3 MG Tab PO PRN (20:50)
[2023-04-26] MEDS: Ibuprofen 400 MG Tab PO PRN (20:50)
[2023-04-27] MEDS: Acetaminophen 325 MG Tab PO PRN ×3 (01:54→17:58)
[2023-04-27] MEDS: Psyllium Husk Powder Sugar Free 5.85 GM Packet PO SCH (08:24)
[2023-04-27] MEDS: Cholecalciferol (Vitamin D3) 25 MCG Tab PO SCH (08:25)
[2023-04-27] MEDS: Lisinopril 20 MG Tab PO SCH (08:25)
[2023-04-27] MEDS: Hydrochlorothiazide 25 MG Tab PO SCH (08:26)
[2023-04-27] MEDS: Apixaban 5 MG Tab PO SCH ×2 (08:26→19:59)
[2023-04-27] MEDS: Hydrocortisone Acetate 1% Crm 30 GM Tube TOP SCH ×2 (08:26→19:57)
[2023-04-27] MEDS: Ibuprofen 400 MG Tab PO PRN (19:58)
[2023-04-27] MEDS: Melatonin 3 MG Tab PO PRN (20:50)
[2023-04-28] MEDS: Acetaminophen 325 MG Tab PO PRN ×3 (02:40→18:04)
[2023-04-28] MEDS: Psyllium Husk Powder Sugar Free 5.85 GM Packet PO SCH (08:23)
[2023-04-28] MEDS: Hydrocortisone Acetate 1% Crm 30 GM Tube TOP SCH ×2 (08:23→19:43)
[2023-04-28] MEDS: Cholecalciferol (Vitamin D3) 25 MCG Tab PO SCH (08:24)
[2023-04-28] MEDS: Hydrochlorothiazide 25 MG Tab PO SCH (08:24)
[2023-04-28] MEDS: Lisinopril 20 MG Tab PO SCH (08:24)
[2023-04-28] MEDS: Apixaban 5 MG Tab PO SCH ×2 (08:24→19:42)
[2023-04-28] MEDS: Ibuprofen 400 MG Tab PO PRN (19:43)
[2023-04-28] MEDS: Melatonin 3 MG Tab PO PRN (19:43)
[2023-04-29] MEDS: Acetaminophen 325 MG Tab PO PRN ×4 (02:01→19:26)
[2023-04-29] MEDS: Apixaban 5 MG Tab PO SCH ×2 (09:27→19:26)
[2023-04-29] MEDS: Cholecalciferol (Vitamin D3) 25 MCG Tab PO SCH (09:27)
[2023-04-29] MEDS: Lisinopril 20 MG Tab PO SCH (09:27)
[2023-04-29] MEDS: Hydrocortisone Acetate 1% Crm 30 GM Tube TOP SCH ×2 (09:28→19:28)
[2023-04-29] MEDS: Psyllium Husk Powder Sugar Free 5.85 GM Packet PO SCH (09:28)
[2023-04-29] MEDS: Hydrochlorothiazide 25 MG Tab PO SCH (09:28)
[2023-04-29] MEDS: Ibuprofen 400 MG Tab PO PRN (16:39)
[2023-04-29] MEDS: Melatonin 3 MG Tab PO PRN (19:25)
[2023-04-30] MEDS: Acetaminophen 325 MG Tab PO PRN ×2 (01:10→11:53)
[2023-04-30] MEDS: Lisinopril 20 MG Tab PO SCH (08:02)
[2023-04-30] MEDS: Hydrochlorothiazide 25 MG Tab PO SCH (08:05)
[2023-04-30] MEDS: Apixaban 5 MG Tab PO SCH ×2 (08:05→19:36)
[2023-04-30] MEDS: Psyllium Husk Powder Sugar Free 5.85 GM Packet PO SCH (08:06)
[2023-04-30] MEDS: Hydrocortisone Acetate 1% Crm 30 GM Tube TOP SCH ×2 (08:06→19:36)
[2023-04-30] MEDS: Cholecalciferol (Vitamin D3) 25 MCG Tab PO SCH (08:06)
[2023-04-30] MEDS: Ibuprofen 400 MG Tab PO PRN (19:36)
[2023-04-30] MEDS: Melatonin 3 MG Tab PO PRN (19:36)
[2023-05-01] MEDS: Apixaban 5 MG Tab PO SCH (08:22)
[2023-05-01] MEDS: Hydrochlorothiazide 25 MG Tab PO SCH (08:22)
[2023-05-01] MEDS: Lisinopril 20 MG Tab PO SCH (08:23)
[2023-05-01] MEDS: Ibuprofen 400 MG Tab PO PRN (08:23)
[2023-05-01] MEDS: Cholecalciferol (Vitamin D3) 25 MCG Tab PO SCH (08:23)
[2023-05-01] MEDS: Psyllium Husk Powder Sugar Free 5.85 GM Packet PO SCH (08:23)
[2023-05-01] MEDS: Hydrocortisone Acetate 1% Crm 30 GM Tube TOP SCH (08:24)
== END 2023-05-01 13:05 | disposition home or self-care (01) | DRG 948 ==
LOC: LB.MS 11:08
PROVIDERS: ADMIT Surgery; ATTEND Surgery
DX: R53.81 Other malaise (principal); Z68.43 Body mass index [BMI] 50.0-59.9, adult; M19.90 Unspecified osteoarthritis, unspecified site; F41.9 Anxiety disorder, unspecified; E66.9 Obesity, unspecified; R79.89 Other specified abnormal findings of blood chemistry; I15.9 Secondary hypertension, unspecified; E83.42 Hypomagnesemia; D72.825 Bandemia; L40.9 Psoriasis, unspecified; E86.0 Dehydration; Z79.899 Other long term (current) drug therapy; Z90.89 Acquired absence of other organs
CPT/HCPCS: 93970; 97110-GP; 97116-GP; 97164-GP; 97168-GO; 97530-GP; 97535-GO; A9270-GY